=== PATIENT | female | born 1950 | race Caucasian/White ===

== ENCOUNTER 2023-08-18 10:23 | Outpatient (CLI) | payer SELFPAY ==
[2023-08-18 10:46] LABS: Eosinophils # 0.2 10^3/uL (0.0-0.8); Eosinophils % 3.9 %; Hematocrit 32.4 % (36-47); Lymphocytes # 1.3 10^3/uL (0.8-4.8); Lymphocytes % 33.2 %; Mean Corpuscular HGB Conc 30.6 g/dL (30-55); Mean Corpuscular Hemoglobin 26.8 pg (27-33); Mean Corpuscular Volume 87.8 fl (85-98); Mean Platelet Volume 10.3 fL (7.4-10.4); Monocytes # 0.3 10^3/uL (0.2-0.9); Monocytes % 7.1 %; Neutrophils # 2.08 10^3/uL (1.8-7.7); Neutrophils % 54.5 %; Nucleated Red Blood Cells % 0 %; Platelet Count 255 10^3/cmm (157-399); Red Blood Count 3.69 10^6/uL (3.85-5.65); Red Cell Distribution Width 14.7 % (12.1-15.1); White Blood Count 3.82 10^3/uL (3.29-11.43)
[2023-08-18 11:29] LABS: Alanine Aminotransferase < 5 U/L (0-33); Albumin Level 3.3 g/dL (3.5-5.2); Alkaline Phosphatase 84 U/L (35-105); Anion Gap 13.5 (5-19); Aspartate Amino Transferase 11 U/L (0-32); Blood Urea Nitrogen 12 mg/dL (8-23); Calcium 8.6 mg/dL (8.5-10.5); Carbon Dioxide 29 mmol/L (22-29); Chloride 109 mmol/L (98-107); Chol HDL Ratio 3.48 mg/dL (0.0-4.40); Cholesterol 160 mg/dL (0-200); Globulin 2.7 g/dL (1.3-4.6); Glomerular Filtration Rate 61.9 mL/min (90-130); Glucose 179 mg/dL (65-115); HDL Cholesterol 46 mg/dL (60-100); LDL Cholesterol Calculated 89 mg/dL (50-129); LDL HDL Ratio 1.93 RATIO (0.00-3.22); Osmolality Calculated 310 mOsm/kg (285-295); Potassium 3.5 mmol/L (3.5-5.1); Sodium 148 mmol/L (136-145); Thyroid Stimulating Hormone 1.45 uIU/mL (0.27-4.20); Total Bilirubin 0.2 mg/dL (0.15-1.2); Triglycerides 124 mg/dL (0-150); Vitamin B12 298 pg/mL (232-1245)
== END 2023-08-18 10:24 | disposition home or self-care (01) ==
PROVIDERS: PCP Family Medicine; Visit Provider Family Medicine
DX: I10 Essential (primary) hypertension (principal); D64.9 Anemia, unspecified
CPT/HCPCS: 80053; 80061; 82607; 83735; 84443; 85025

== ENCOUNTER 2023-10-31 12:06 | Outpatient (CLI) | payer MEDICARE, SELFPAY ==
--- NOTE | 2023-10-31 12:09 | CTR_ITS ---
PROCEDURE INFORMATION: Exam: CT Neck With Contrast Exam date and time: 10/31/2023 1:24 PM Age: 73 years old Clinical indication: Dysphagia / difficulty swallowing TECHNIQUE: Imaging protocol: Computed tomography of the neck with contrast. Radiation optimization: All CT scans at this facility use at least one of these dose optimization techniques: automated exposure control; mA and/or kV adjustment per patient size (includes targeted exams where dose is matched to clinical indication); or iterative reconstruction. Contrast material: OMNI 350; Contrast volume: 100 ml; Contrast route: INTRAVENOUS (IV); COMPARISON: No relevant prior studies available. RADIATION DOSE METRICS: Total DLP (mGy-cm): 146.18 FINDINGS: Salivary glands: Parotid and submandibular glands are normal. Oral cavity: Asymmetric heterogeneous density is present at the tongue base, right greater than left measuring 3.0 cm in the transverse dimension. Pharynx: Unremarkable. No significant tonsillar enlargement. Prevertebral and retropharyngeal spaces: Unremarkable. Larynx: Unremarkable. Epiglottis is normal. Thyroid: Normal. No enlarged or calcified nodules. Trachea: Visualized trachea is unremarkable. Lungs: Unremarkable as visualized. Lymph nodes: Unremarkable. No lymphadenopathy. Vasculature: Multi-vessel atherosclerotic disease. Calcified plaque in the proximal right internal carotid artery results in mild stenosis. Diminutive right cervical vertebral artery with thready flow. Patient is left vertebral artery dominant. Atherosclerotic plaque at the origin of the left common carotid artery results in a short segment of moderate to severe stenosis. Atherosclerotic plaque in the mid to distal left common carotid artery results in mild stenosis. There is occlusion of the left internal carotid artery by atherosclerotic plaque. Prominent atherosclerotic plaque is present in the aortic arch with ulceration. Bones/joints: Unremarkable. No acute fracture. Soft tissues: Unremarkable. No significant soft tissue swelling. CT/CT neck w con* [id number] IMPRESSION: 1. There is asymmetric heterogeneous density at the tongue base, right greater than the left. This region is amenable to direct inspection. 2. Multi-vessel atherosclerotic disease. There is complete occlusion of the left internal carotid artery by atherosclerotic plaque.
[2023-10-31 13:15] LABS: Blood Urea Nitrogen 16 mg/dL (8-23)
== END 2023-10-31 12:07 | disposition home or self-care (01) ==
LOC: RAD 12:07
PROVIDERS: PCP Family Medicine; Visit Provider Specialist
DX: R13.10 Dysphagia, unspecified (principal); K14.8 Other diseases of tongue; I65.23 Occlusion and stenosis of bilateral carotid arteries
CPT/HCPCS: 70491; 82565; 84520; Q9967

== ENCOUNTER 2023-12-05 11:28 | Outpatient (CLI) | payer OTHER, SELFPAY ==
--- NOTE | 2023-12-05 11:29 | MR_ITS ---
WS: [id number] MRI NECK WITH AND WITHOUT CONTRAST. COMPARISON: CT 10/31/2023 Multiplanar, multisequence imaging is performed with and without contrast. MultiHance 14 mL IV. Nearly symmetric appearance of the tongue base and parapharyngeal soft tissues. No enhancing mass is identified. No edema. The larynx and subglottic airway are normal. No tongue base abnormality is conf irmed. No cervical chain lymphadenopathy. Normal appearance of the parotid glands. Orbits and imaging at the skull base are negative. Mild RIGHT curvature cervical spine. Reversal of t he normal cervical spine at C5. RIGHT mastoid air cell effusion. MR/MR orbit face neck wo/w* [id number] IMPRESSION: 1. No mass or abnormal enhancement at the tongue base identified by MRI. 2. No cervical chain lymphadenopathy.
[2023-12-05] MEDS: gadobenate dimeglumine 20 mL vial IV (13:13)
== END 2023-12-05 11:29 | disposition home or self-care (01) ==
LOC: RAD 11:29
PROVIDERS: PCP Family Medicine; Visit Provider Specialist
DX: D37.05 Neoplasm of uncertain behavior of pharynx (principal)
CPT/HCPCS: 70543; A9577

== ENCOUNTER 2023-12-20 10:08 | Outpatient (CLI) | payer OTHER, SELFPAY ==
--- NOTE | 2023-12-20 10:19 | CT_ITS ---
WS: [id number] CT TEMPORAL BONES TECHNIQUE: Noncontrast CT of the temporal bones with coronal and sagittal reformatted images. CLINICAL INFORMATION: OTALGIA,R EAR COMPARISON: None. DLP: 382.[address] scans at [facility] use at least one of these dose optimization techniques: automated e xposure control; mA and/or kV adjustment per patient size (includes targeted exams where dose is matc hed to clinical indication); or iterative reconstruction. FINDINGS: Slight mucosal thickening RIGHT maxillary sinus. LEFT maxillary sinus is well aerated. Mild mucosal thickening in the ethmoid air cells. Normal posterior nasopharynx. RIGHT: RIGHT mastoid effusion. Normal external auditory canal. Ossicles are normal in appearance. Mucosal th ickening RIGHT epitympanum extending into Prussak space. Slight retraction RIGHT tympanic membrane. N ormal tegmen tympani. Semicircular canals and cochlea are normal in appearance. Normal inner ear stru ctures. Normal vestibular aqueduct. Facial nerve recess is normal. LEFT: Mastoid air cells are well aerated. Normal external auditory canal. Ossicles are normal in appearance . Middle ear is well aerated. Normal tegmen tympani. Semicircular canals and cochlea are normal in ap pearance. Prussak's space is normal. Normal inner ear structures. Normal vestibular aqueduct. Facial nerve recess is normal. Visualized intracranial contents and posterior fossa are normal. CT/CT temporal bone wo con* [id number] IMPRESSION: 1. RIGHT mastoid effusion. 2. Slight mucosal thickening in the RIGHT epitympanum extending into Prussak's space. Normal scutum. Normal ossicles. Slight retraction RIGHT tympanic membra ne. 3. LEFT mastoid air cells and middle ear well aerated. 4. Otherwise normal inner ear structures bilaterally. 5. Vascular calcification.
== END 2023-12-20 10:09 | disposition home or self-care (01) ==
LOC: RAD 10:09
PROVIDERS: PCP Family Medicine; Visit Provider Specialist
DX: H74.8X1 Other specified disorders of right middle ear and mastoid (principal); I67.2 Cerebral atherosclerosis; H92.01 Otalgia, right ear
CPT/HCPCS: 70480

== ENCOUNTER 2024-02-16 22:33 | Emergency (ER) | payer OTHER, SELFPAY ==
[2024-02-16 22:35] VITALS: BP 178/97; PULSE 68; RESP 16; TEMP 36.7; O2SAT 94; BMI 28.3
[2024-02-16 22:52] LABS: Basophils # 0.1 10^3/uL (0.0-0.1); Basophils % 0.8 %; Eosinophils # 0.3 10^3/uL (0.0-0.8); Eosinophils % 4.6 %; Hematocrit 39.3 % (36-47); Lymphocytes # 2.2 10^3/uL (0.8-4.8); Lymphocytes % 36.8 %; Mean Corpuscular HGB Conc 32.1 g/dL (30-55); Mean Corpuscular Hemoglobin 26.6 pg (27-33); Mean Corpuscular Volume 83.1 fl (85-98); Mean Platelet Volume 9.8 fL (7.4-10.4); Monocytes # 0.5 10^3/uL (0.2-0.9); Monocytes % 7.9 %; Neutrophils # 3.02 10^3/uL (1.8-7.7); Neutrophils % 49.7 %; Nucleated Red Blood Cells % 0 %; Platelet Count 274 10^3/cmm (157-399); Red Blood Count 4.73 10^6/uL (3.85-5.65); White Blood Count 6.08 10^3/uL (3.29-11.43)
[2024-02-16 23:04] LABS: Alanine Aminotransferase 12 U/L (0-33); Albumin Level 4.1 g/dL (3.5-5.2); Alkaline Phosphatase 126 U/L (35-105); Anion Gap 15.1 (5-19); Aspartate Amino Transferase 12 U/L (0-32); Blood Urea Nitrogen 21 mg/dL (8-23); Carbon Dioxide 26 mmol/L (22-29); Chloride 102 mmol/L (98-107); Creatinine Clr Calc Pharmacy 42.6008; Globulin 2.9 g/dL (1.3-4.6); Glucose 109 mg/dL (65-115); Lipase 45 U/L (13-60); Osmolality Calculated 292 mOsm/kg (285-295); Potassium 4.1 mmol/L (3.5-5.1); Sodium 139 mmol/L (136-145); Total Bilirubin 0.2 mg/dL (0.15-1.2)
--- NOTE | 2024-02-16 23:37 | CTR_ITS ---
PROCEDURE INFORMATION: Exam: CT Abdomen And Pelvis With Contrast Exam date and time: 02/17/2024 12:04 AM Age: 73 years old Clinical indication: Abdominal pain; Localized; Left; Additional info: Llq abd pain TECHNIQUE: Imaging protocol: Computed tomography of the abdomen and pelvis with contrast. Radiation optimization: All CT scans at this facility use at least one of these dose optimization techniques: automated exposure control; mA and/or kV adjustment per patient size (includes targeted exams where dose is matched to clinical indication); or iterative reconstruction. Contrast material: OMNI 350; Contrast volume: 100 ml; Contrast route: INTRAVENOUS (IV); COMPARISON: No relevant prior studies available. RADIATION DOSE METRICS: Total DLP (mGy-cm): 554.46 FINDINGS: Lungs: The lung bases are clear. Heart: Heart size is within normal limits. There is no pericardial effusion or pericardial thickening. Diaphragm: Small hiatal hernia. Liver: Right hepatic low-density lesion, too small to characterize though likely representing small cyst. The liver is otherwise normal. Gallbladder and biliary ducts: The gallbladder is normal. There is no ductal dilatation. Pancreas: The pancreas is normal. Spleen: The spleen is normal. Adrenal glands: The adrenal glands are normal. Kidneys and ureters: Severely atrophic right kidney. There are bilateral subcentimeter renal low-density lesions which are too small for accurate characterization, likely representing simple cysts. Minimal fullness of the left renal collecting system without hydronephrosis, likely physiologic. No ureteral dilatation. No renal calcifications. Stomach and bowel: Mild colonic diverticulosis without diverticulitis. Mild retained colonic stool. There is no large or small bowel obstruction. There is no evidence of bowel wall thickening. Appendix: A normal appendix is identified. Intraperitoneal space: No inflammatory changes are identified. There is no free fluid or fluid collection seen. There is no pneumoperitoneum. Vasculature: Atherosclerotic calcifications of the aorta are present. No aneurysm is identified. Lymph nodes: No enlarged lymph nodes are identified. Urinary bladder: The bladder is unremarkable. Reproductive: The uterus is absent. Bones/joints: No acute osseous abnormalities are seen. Chronic appearing superior endplate compression fracture T12. Soft tissues: Small periumbilical hernia containing only fat. CT/CT abdomen pelvis w con* [id number] IMPRESSION: 1. No acute intra-abdominal or pelvic process. 2. Other nonemergent findings above. COMMENTS: Consistent with the [place] [employer]'s Incidental Findings Committee white paper (J Am Pablo Radiol 2018): Any incidental renal lesion less than 1 cm or classified as too small to characterize, or any incidental cystic renal lesion characterized as simple-appearing, is likely benign. No follow-up imaging is recommended for these lesions per consensus recommendations based on imaging criteria.
--- NOTE | 2024-02-16 23:57 | ED_ITS ---
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 that is very hard to communicate with Related Data Previous Rx's Medication Instructions Recorded nicotine 7 mg/24 hr daily 1 patch transdermal Q24H #7 ea 08/18/23 transdermal patch diazepam 5 mg tablet 5 mg PO Q8H anxiety #90 tabs 12/29/23 hydrocodone 10 mg-acetaminophen 1 tab PO Q8H PRN pain 30 days #90 01/26/24 325 mg tablet tabs Allergies Allergy/AdvReac Type Severity Reaction Status Date / Time lactose Allergy Intermediate ADR-Gastrointestinal Verified 08/17/23 15:37 Upset MSG Allergy Intermediate ADR-Gastrointestinal Uncoded 08/17/23 15:37 Upset Review of Systems 2 General: Reports: 10 or more systems reviewed and unremarkable except in HPI and below Physical Exam 2 Const: COMMON NORMALS: no acute distress, average body habitus, healthy appearing, alert and well nourished HENMT: COMMON NORMALS: normocephalic, atraumatic, hearing grossly normal bilaterally, external ears normal, Normal external nose present and moist oral mucous membranes HEAD & SCALP: normocephalic and atraumatic NOSE: Normal external nose present EXTERNAL EAR: Yes external ears normal Neck/C-Spine: COMMON NORMALS: no JVD Chest: COMMONS NORMALS: normal inspection of the chest and normal palpation of entire chest wall Resp: COMMON NORMALS: normal respiratory effort, No retractions, No use of accessory muscles and clear to auscultation bilaterally AUSCULTATION: clear to auscultation bilaterally Cardio: COMMON NORMALS: no JVD, regular rate, regular rhythm, S1 normal heart sound present, S2 normal heart sound present, No gallops present (Cardio), No clicks present (Cardio), No murmurs present (Cardio) and No rub (Cardio) R ATE: regular rate RHYTHM: regular rhythm HEART SOUNDS: S1 normal heart sound present and S2 normal heart sound present GI: COMMON NORMALS: Normal to inspection, nondistended, normoactive bowel sounds present, Soft to palpation, No hepatosplenomegaly present and no masses; negative for non-tender (Mild tenderness to palpate left side of abdomen) P ALPATION: Yes Soft to palpation and Yes No hepatosplenomegaly present Neuro: SENSORIUM/ORIENTATION: Yes alert Course 2 Vital Signs: Vital signs: Vital Signs Temperature 98.0 F 02/16/24 22:35 Pulse Rate 50 L 02/17/24 01:38 Respiratory Rate 14 02/17/24 01:38 Blood Pressure 140/99 02/17/24 01:38 Pulse Oximetry 98 02/17/24 01:38 Oxygen Delivery Me thod Room Air 02/17/24 00:59 MDM - Abdominal Pain Medical Decision Making Patient had lab work included CBC CMP lipase urinalysis and contrasted CT scan of the abdomen pelvis all essentially unremarkable. Patient urged back home. Patient should follow-up with her PCP within next 7 to 10 days. Differential Diagnosis Likely abdominal pain Medical Records I reviewed the patient's medical records. Lab Data I reviewed the patient's lab results. 02/16/24 22:15 02/16/24 22:15 Labs/Radiology: Radiology Impressions Abdomen/Pelvis CT 02/16/24 23:37 IMPRESSION: 1. No acute intra-abdominal or pelvic process. 2. Other nonemergent findings above. COMMENTS: Consistent with the [employer]'s Incidental Findings Committee white paper (J Am Pablo Radiol 2018): Any incidental renal lesion less than 1 cm or classified as too small to characterize, or any incidental cystic renal lesion characterized as simple-appearing, is likely benign. No follow-up imaging is recommended for these lesions per consensus recommendations based on imaging criteria. Laboratory Results WBC 6.08 10^3/uL (3.29-11.43) 02/16/24 22:15 RBC 4.73 10^6/uL (3.85-5.65) 02/16/24 22:15 Hgb 12.60 g/dL (11.27-16.99) 02/16/24 22:15 Hct 39.3 % (36-47) 02/16/24 22:15 MCV 83.1 fl (85-98) L 02/16/24 22:15 MCH 26.6 pg (27-33) L 02/16/24 22:15 MCHC 32.1 g/dL (30-55) 02/16/24 22:15 RDW 16.0 % (12.1-15.1) H 02/16/24 22:15 Plt Count 274 10^3/cmm (157-399) 02/16/24 22:15 MPV 9.8 fL (7.4-10.4) 02/16/24 22:15 Neut % (Auto) 49.7 % 02/16/24 22:15 Lymph % (Auto) 36.8 % 02/16/24 22:15 Davison % (Auto) 7.9 % 02/16/24 22:15 Eos % (Auto) 4.6 % 02/16/24 22:15 Baso % (Auto) 0.8 % 02/16/24 22:15 Neut # (Auto) 3.02 10^3/uL (1.8-7.7) 02/16/24 22:15 Lymph # (Auto) 2.2 10^3/uL (0.8-4.8) 02/16/24 22:15 Davison # (Auto) 0.5 10^3/uL (0.2-0.9) 02/16/24 22:15 Eos # (Auto) 0.3 10^3/uL (0.0-0.8) 02/16/24 22:15 Baso # (Auto) 0.1 10^3/uL (0.0-0.1) 02/16/24 22:15 Nucleated RBC % (auto) 0 % 02/16/24 22:15 Nucleated RBCs # 0.0 /100WBC 02/16/24 22:15 Sodium 139 mmol/L (136-145) 02/16/24 22:15 Potassium 4.1 mmol/L (3.5-5.1) 02/16/24 22:15 Chloride 102 mmol/L (98-107) 02/16/24 22:15 Carbon Dioxide 26 mmol/L (22-29) 02/16/24 22:15 Anion Gap 15.1 (5-19) 02/16/24 22:15 BUN 21 mg/dL (8-23) 02/16/24 22:15 Creatinine 1.2 mg/dL (0.5-0.9) H 02/16/24 22:15 GFR Calculation Not Reportable 02/16/24 22:15 Glucose 109 mg/dL (65-115) 02/16/24 22:15 Calculated Osmolality 292 mOsm/kg (285-295) 02/16/24 22:15 Calcium 9.0 mg/dL (8.5-10.5) 02/16/24 22:15 Total Bilirubin 0.2 mg/dL (0.15-1.2) 02/16/24 22:15 AST 12 U/L (0-32) 02/16/24 22:15 ALT 12 U/L (0-33) 02/16/24 22:15 Alkaline Phosphatase 126 U/L (35-105) H 02/16/24 22:15 Total Protein 7.0 g/dL (6.6-8.7) 02/16/24 22:15 Albumin 4.1 g/dL (3.5-5.2) 02/16/24 22:15 Globulin 2.9 g/dL (1.3-4.6) 02/16/24 22:15 Lipase 45 U/L (13-60) 02/16/24 22:15 Urine Color Yellow (Yellow) 02/17/24 00:20 Urine Appearance Clear (CLEAR) 02/17/24 00:20 Urine pH 6.5 (5-7) 02/17/24 00:20 Ur Specific [place] 1.011 (1.005-1.030) 02/17/24 00:20 Urine Protein Negative (Negative) 02/17/24 00:20 Urine Glucose (UA) Negative (Normal) 02/17/24 00:20 Urine Ketones Negative (Negative) 02/17/24 00:20 Urine Blood Negative (Negative) 02/17/24 00:20 Urine Nitrate Negative (Negative) 02/17/24 00:20 Urine Bilirubin Negative (Negative) 02/17/24 00:20 Urine Urobilinogen 0.2 mg/dL (Negative) 02/17/24 00:20 Ur Leukocyte Esterase Negative (Negative) 02/17/24 00:20 Urine RBC 0-2 /hpf (0-2) 02/17/24 00:20 Urine WBC 0-5 /hpf (0-5) 02/17/24 00:20 Ur Squamous Epith Cells 0-5 /hpf (0-5) 02/17/24 00:20 Amorphous Sediment Not Reportable 02/17/24 00:20 Urine Bacteria None seen /hpf (NONE) 02/17/24 00:20 Hyaline Casts 0-4 /lpf H 02/17/24 00:20 All radiology interpretation(s) finalized by discharge Discharge Plan Discharge Patient Disposition: Home Clinical Impression: Abdominal pain Qualifiers: Abdominal location: left lower quadrant Qualified Code(s): R10.32 - Left lower quadrant pain Condition: Stable Prescriptions: No Action nicotine 7 mg/24 hr patch 24 hour 1 patch transdermal Q24H Qty: 7 11RF diazepam 5 mg tablet 5 mg PO Q8H Qty: 90 0RF hydrocodone-acetaminophen 10-325 mg tablet 1 tab PO Q8H PRN (Reason: pain) 30 Days Qty: 90 0RF Discharge Orders: Discharge ED (Routine); Ordered 02/17/24 Ordered By: Jamshid Dowd Referrals: Giuseppe Ramey DO [Primary Care Provider] - 1 week Patient Instructions: Abdominal Pain (ED) Activity Restrictions/Additional Instructions: Your exam in the ER that included lab work, urinalysis, and contrasted CT scan of the abdomen pelvis did not show any acute cause of your abdominal pain. Please follow-up with your family practice physician for further evaluation testing within next 7 to 10 days. Thank you for choosing [facility] for your healthcare needs today. Please realize that you were seen in the emergency department and that we are providing you with an emergency medical screening exam and this may not be a complete and all exclusive of all testing and/or medical workup we may need to determine your element or severity of your illness. It is very important that you follow-up as instructed with your primary care provider or specialist for the additional evaluation and to discuss your medical treatment plan. You may return to the emergency department should you have concerns or if your condition changes or worsens in any way. Coding Level of Care Code ED Fence Installer for Trinidad Ramachandran
[2024-02-17] VITALS (8 sets, daily range): BP systolic 140–162; BP diastolic 63–99; PULSE 50–71; RESP 14–20; O2SAT 90–98
[2024-02-17] MEDS: iohexol 350 mg/mL 500 mL Btl (per mL) IV (00:08)
[2024-02-17] MEDS: morphine 4 mg/mL SDV 1 mL IVP (00:21)
[2024-02-17] MEDS: ondansetron 2 mg/ML SDV 2 mL 4 MG IVP (00:21)
[2024-02-17 00:36] LABS: Bilirubin Urine Negative (Negative); Blood Urine Negative (Negative); Glucose Urine UA Negative (Normal); Ketones Urine Negative (Negative); Leukocyte Esterase Urine Negative (Negative); Nitrate Urine Negative (Negative); Protein Urine Negative (Negative); Specific Gravity, Urine 1.011 (1.005-1.030); Urine Appearance Clear (CLEAR); Urine Color Yellow (Yellow); Urobilinogen Urine 0.2 mg/dL (Negative); pH Urine 6.5 (5-7)
[2024-02-17 00:41] LABS: Add Urine Microscopic? YES; Bacteria Urine None Seen /hpf; Hyaline Casts Urine 0-4 /lpf; RBC Urine 0-2 /hpf (0-2); Squamous Epithelial Cell Urine 0-5 /hpf (0-5); WBC Urine 0-5 /hpf (0-5)
== END 2024-02-17 08:51 | disposition home or self-care (01) ==
PROVIDERS: Emergency Provider Emergency Medicine; PCP Family Medicine
DX: R10.32 Left lower quadrant pain (principal)
CPT/HCPCS: 74177; 80053; 81001; 83690; 85025; 96374; 96375; 99285; J2270; J2405

== ENCOUNTER 2024-05-22 15:56 | Outpatient (CLI) | payer OTHER, SELFPAY ==
[2024-05-22 16:12] LABS: Bilirubin Urine Negative (Negative); Blood Urine Negative (Negative); Glucose Urine UA Negative (Normal); Ketones Urine Negative (Negative); Leukocyte Esterase Urine Trace (Negative); Nitrate Urine Negative (Negative); Protein Urine Negative (Negative); Specific Gravity, Urine 1.006 (1.005-1.030); Urine Appearance Clear (CLEAR); Urine Color Yellow (Yellow); Urobilinogen Urine 0.2 mg/dL (Negative)
[2024-05-22 16:20] LABS: Add Urine Microscopic? YES; Bacteria Urine None Seen /hpf; Hyaline Casts Urine 0.81 /lpf; RBC Urine 0-2 /hpf (0-2); Squamous Epithelial Cell Urine 0-5 /hpf (0-5); WBC Urine 0-5 /hpf (0-5)
== END 2024-05-22 15:57 | disposition home or self-care (01) ==
LOC: LAB 16:00
PROVIDERS: PCP Family Medicine; Visit Provider Family Medicine
DX: N39.0 Urinary tract infection, site not specified (principal)
CPT/HCPCS: 81001; 87086

== ENCOUNTER 2024-09-30 12:24 | Emergency (ER) | payer OTHER, SELFPAY ==
[2024-09-30 12:26] VITALS: BP 117/67; PULSE 75; TEMP 36.7; O2SAT 94
--- NOTE | 2024-09-30 12:36 | ECG_ITS ---
[employer] Test Date: 2024-09-30 Pat Name: Debbie Brown Department: Room: Gender: Female Flotation Tender: : 1950 Requested By: Matthew Oreilly Order Number: [id number] Beto MD: EPHRAIM MACIAS Measurements Intervals [place] Rate: 69 P: 72 NC: 192 QRS: 71 QRSD: 93 T: 71 QT: 421 QTc: 452 Interpretive Statements SINUS RHYTHM POSSIBLE RIGHT VENTRICULAR CONDUCTION DELAY [RSR (QR) IN V1/V2] NONSPECIFIC T-WAVE ABNORMALITY No previous ECG available for comparison Electronically Signed On 10-01-2024 19:04:54 CDT by EPHRAIM MACIAS [email or web address]
--- NOTE | 2024-09-30 12:46 | PC.PHAR ---
Pt is from [facility]
--- NOTE | 2024-09-30 12:47 | CTR_ITS ---
PROCEDURE INFORMATION: Exam: CT Abdomen And Pelvis With Contrast Exam date and time: 09/30/2024 2:19 PM Age: 74 years old Clinical indication: Abdominal pain; Localized; Left lower quadrant (llq); Additional info: Gi bleed, llq pain TECHNIQUE: Imaging protocol: Computed tomography of the abdomen and pelvis with contrast. Radiation optimization: All CT scans at this facility use at least one of these dose optimization techniques: automated exposure control; mA and/or kV adjustment per patient size (includes targeted exams where dose is matched to clinical indication); or iterative reconstruction. Contrast material: OMNIPAQUE 350; Contrast volume: 100 ml; Contrast route: INTRAVENOUS (IV); COMPARISON: CT abdomen pelvis w con* [id number] 02/17/2024 12:04 AM RADIATION DOSE METRICS: Total DLP (mGy-cm): 840.43 FINDINGS: Liver: Normal. No mass. Gallbladder and biliary ducts: Normal. No calcified stones. No ductal dilation. Pancreas: Normal. No ductal dilation. Spleen: Normal. No splenomegaly. Adrenal glands: Normal. No mass. Kidneys and ureters: There is a atrophy of the right kidney. Stomach and bowel: There is bowel wall thickening involving the distal transverse colon and descending colon. Sigmoid colon diverticulosis. No small bowel loop dilatation. Appendix: Normal appendix Intraperitoneal space: Unremarkable. No free air. No significant fluid collection. Vasculature: Mild calcified atherosclerotic changes are seen throughout the abdominal aorta. Lymph nodes: Unremarkable. No enlarged lymph nodes. Urinary bladder: Unremarkable as visualized. Reproductive: Post hysterectomy changes are seen. Bones/joints: Mild lumbar spine degenerative changes. Soft tissues: Unremarkable. CT/CT abdomen pelvis w con* [id number] IMPRESSION: 1. There is bowel wall thickening involving the distal transverse colon and descending colon. Findings suggest colitis involving the distal transverse and descending colon. 2. Mild calcified atherosclerotic changes are seen throughout the abdominal aorta. 3. Sigmoid colon diverticulosis. 4. Mild lumbar spine degenerative changes.
[2024-09-30 12:56] VITALS: RESP 17; O2SAT 94
[2024-09-30] MEDS: morphine 4 mg/mL SDV 1 mL 2 MG IVP (12:56)
[2024-09-30] MEDS: ondansetron 2 mg/ML SDV 2 mL 4 MG IVP (12:56)
[2024-09-30 13:00] LABS: Basophils % 0.1 %; Eosinophils % 0.1 %; Hematocrit 39.2 % (36-47); Lymphocytes # 1.6 10^3/uL (0.8-4.8); Lymphocytes % 11.5 %; Mean Corpuscular HGB Conc 32.1 g/dL (30-55); Mean Corpuscular Hemoglobin 26.8 pg (27-33); Mean Corpuscular Volume 83.4 fl (85-98); Monocytes # 0.6 10^3/uL (0.2-0.9); Monocytes % 4.5 %; Neutrophils # 11.51 10^3/uL (1.8-7.7); Neutrophils % 83.4 %; Nucleated Red Blood Cells % 0 %; Platelet Count 209 10^3/cmm (157-399); Red Cell Distribution Width 15.3 % (12.1-15.1); White Blood Count 13.79 10^3/uL (3.29-11.43)
[2024-09-30 13:49] VITALS: BP 177/77; PULSE 60; RESP 20; O2SAT 92
--- NOTE | 2024-09-30 13:50 | PC.NURSE ---
Pt placed on oxygen @ 2lnc post Morphine admin. Sats had dropped to 86% with good waveform.
[2024-09-30 14:00] LABS: INR 0.99 (0.8-1.2); Partial Thromboplastin Time 29.6 SECONDS (23.9-36.7)
[2024-09-30 14:04] LABS: Alanine Aminotransferase 8 U/L (0-33); Albumin Level 3.5 g/dL (3.5-5.2); Alkaline Phosphatase 105 U/L (35-105); Anion Gap 14.3 (5-19); Aspartate Amino Transferase 12 U/L (0-32); Blood Urea Nitrogen 16 mg/dL (8-23); Calcium 8.5 mg/dL (8.5-10.5); Carbon Dioxide 26 mmol/L (22-29); Chloride 98 mmol/L (98-107); Creatinine Clr Calc Pharmacy 47.1242; Globulin 2.7 g/dL (1.3-4.6); Glucose 134 mg/dL (65-115); Osmolality Calculated 283 mOsm/kg (285-295); Potassium 3.3 mmol/L (3.5-5.1); Sodium 135 mmol/L (136-145); Total Bilirubin 0.4 mg/dL (0.15-1.2); Total Protein 6.2 g/dL (6.6-8.7)
[2024-09-30] MEDS: iohexol 350 mg/mL 500 mL Btl (per mL) IV (14:20)
[2024-09-30 14:51] VITALS: BP 183/74; PULSE 66; RESP 22; O2SAT 93
[2024-09-30 15:00] VITALS: BP 146/66; PULSE 74; RESP 22; O2SAT 95
[2024-09-30 15:23] LABS: Bilirubin Urine Negative (Negative); Blood Urine 2+ (Negative); Glucose Urine UA Negative (Normal); Ketones Urine Negative (Negative); Leukocyte Esterase Urine Negative (Negative); Nitrate Urine Positive (Negative); Protein Urine Trace (Negative); Urine Appearance Clear (CLEAR); Urine Color Yellow (Yellow); pH Urine 6.5 (5-7)
[2024-09-30 15:28] LABS: Add Urine Microscopic? YES; Bacteria Urine 4+ /hpf; Hyaline Casts Urine 1.21 /lpf; RBC Urine 0-2 /hpf (0-2); Squamous Epithelial Cell Urine 0-5 /hpf (0-5); WBC Urine 0-5 /hpf (0-5)
[2024-09-30 15:30] LABS: Add Urine Culture? Yes; Specific Gravity, Urine 1.048 (1.005-1.030)
--- NOTE | 2024-09-30 15:42 | W.ED.GIBLEED ---
HPI - GI Bleed General: Chief complaint: GI Bleed Stated complaint: rectal bleeding, weakness Time Seen by Provider: 09/30/24 12:24 History of Present Illness: 74-year-old female presents accompanied by her daughter (who is a nurse) with chief complaint of rectal bleeding since last night. Patient was given MiraLAX yesterday for complaints of abdominal pain and constipation. Subsequently developed significant GI bleeding with multiple bloody bowel movements. Staff at her assisted living facility reported having to assist her from bathroom, with blood noted in trash can, on floor, and in bathroom. This morning, blood was also found in her bed. Daughter reports blood was mixed in color, neither bright red nor dark/black. Patient has history of GI bleeding in May 2022 concurrent with stroke, was hospitalized in [place], [place] and treated with Protonix, which she continues daily. Required 2-3 units of blood during that admission. Recent medical history includes eye injection for macular degeneration on Tuesday with no complications. Patient has some difficulty with word-finding due to previous stroke but is otherwise able to communicate needs. Related Data Home Medications ?Medication ?Instructions ?Recorded ?Confirmed acetaminophen 325 mg tablet 650 mg PO Q6H PRN pain/fever 09/30/24 09/30/24 amlodipine 10 mg tablet 10 mg PO DAILY 09/30/24 09/30/24 aspirin 325 mg tablet 325 mg PO DAILY 09/30/24 09/30/24 atorvastatin 40 mg tablet 40 mg PO BEDTIME 09/30/24 09/30/24 bupropion HCl 150 mg 24 hr tablet, 150 mg PO QAM 09/30/24 09/30/24 extended release carvedilol 25 mg tablet 25 mg PO BID 09/30/24 09/30/24 diazepam 5 mg tablet 5 mg PO Q8H PRN anxiety 09/30/24 09/30/24 magnesium hydroxide 400 mg/5 mL 1,305 ml PO DAILY PRN Constipation 09/30/24 09/30/24 oral suspension (Milk of Magnesia) olmesartan 40 mg tablet 40 mg PO DAILY 09/30/24 09/30/24 pantoprazole 40 mg tablet,delayed 40 mg PO QAM 09/30/24 09/30/24 release polyethylene glycol 3350 17 17 g PO DAILY PRN Constipation 09/30/24 09/30/24 gram/dose oral powder (Miralax) Previous Rx's ?Medication ?Instructions ?Recorded hydrocodone 10 mg-acetaminophen 1 tab PO Q8H PRN pain 30 days #90 01/26/24 325 mg tablet tabs ciprofloxacin HCl 500 mg tablet 500 mg PO BID #20 tabs 09/30/24 metronidazole 500 mg tablet 500 mg PO Q12H 10 days #20 tabs 09/30/24 Allergies Allergy/AdvReac Type Severity Reaction Status Date / Time lactose Allergy Intermediate ADR-Gastrointestinal Verified 09/30/24 12:31 Upset MSG Allergy Intermediate ADR-Gastrointestinal Uncoded 09/30/24 12:31 Upset [facility] ED PFSH: Social History Smoking and tobacco/nicotine status: former use of tobacco/nicotine Physical Exam Const: COMMON NORMALS: no acute distress, average body habitus, alert and well nourished GENERAL APPEARANCE: cooperative ORIENTATION/CONSCIOUSNESS: Yes awake HENMT: COMMON NORMALS: normocephalic and atraumatic HEAD & SCALP: normocephalic and atraumatic Eye: COMMON NORMALS: conjunctivae normal CONJUNCTIVA: Yes conjunctivae normal Neck/C-Spine: GENERAL: Yes normal visual inspection Resp: COMMON NORMALS: normal respiratory effort, No retractions and No use of accessory muscles Cardio: COMMON NORMALS: regular rhythm and Peripheral pulses 2+ throughout RHYTHM: regular rhythm PERIPHERAL PULSES: Peripheral pulses 2+ throughout GI: COMMON NORMALS: Soft to palpation PALPATION: Yes Soft to palpation OTHER: Patient has focal left lower quadrant abdominal tenderness without guarding or rebound Extremity: COMMON NORMALS: full ROM and no pedal edema Neuro: SENSORIUM/ORIENTATION: Yes alert OTHER: Patient has severe expressive aphasia Skin: COMMON NORMALS: no rashes or lesions noted GENERAL SKIN EXAM: no rashes or lesions noted Course Vital Signs: Vital signs: Vital Signs Temperature 98.0 F 09/30/24 12:26 Pulse Rate 74 09/30/24 15:00 Respiratory Rate 22 H 09/30/24 15:00 Blood Pressure 146/66 09/30/24 15:00 Pulse Oximetry 95 09/30/24 15:00 Oxygen Delivery Me thod Room Air 09/30/24 15:00 Oxygen Flow Rate 1 09/30/24 14:51 MDM - GI Bleed Medical Decision Making ROS: Constitutional: Denies fever GI: Positive for rectal bleeding, Denies nausea/vomiting Neuro: Baseline speech difficulties from prior stroke All other systems reviewed and negative MEDICATIONS AND ALLERGIES: Medications: - Protonix daily - Hydrocodone 2-3 times daily for pain - Complete medication list pending from facility Allergies: None reported PAST HISTORICAL DATA: PMH: - Ischemic stroke (May 2022) with residual speech deficits - GI bleeding/ulcer (May 2022) - Diverticulitis - Macular degeneration requiring eye injections every 6 weeks PSH: No reported surgical history Social History: Previously independent, now resides in assisted living facility VITAL SIGNS: BP: 117/67 HR: 75 Temp: 98.0?F O2: 94% on room air PHYSICAL EXAM: General: Alert, non-toxic appearing, in no apparent distress HEENT: Head normocephalic and atraumatic. Mucous membranes moist Neck: Supple Respiratory: No increased work of breathing, No wheezing Cardiac: Regular rate and rhythm, 2+ pulses in all extremities Abdomen: Soft, non-distended, no rebound or guarding Rectal: Bright red blood noted on examination Neuro: Baseline word-finding difficulty, otherwise cranial nerves grossly intact, no focal motor or sensory deficits noted INITIAL IMPRESSION AND PLAN: Given the history and presentation, the primary working diagnosis is lower GI bleeding, likely diverticular bleed vs colitis. Additional considerations include upper GI source, medication-induced bleeding, and other colonic pathology. Plan: 1. Labs: CBC, CMP, PT/INR, PTT, Type & Screen, Urinalysis, Occult blood 2. IV access and fluid resuscitation as needed 3. CT abdomen/pelvis to evaluate for source of bleeding 4. Pain control as needed TEST INTERPRETATIONS: Labs: - Hemoglobin: 12.9 (stable) - Potassium: 3.3 (slightly low) - Other labs within normal limits CT Abdomen/Pelvis: - Colitis noted in transverse and descending colon - No other acute findings PROCEDURES: Digital rectal examination performed revealing bright red blood CONSIDERED BUT NOT PERFORMED: Admission considered but not pursued due to stable vital signs, normal hemoglobin, and identified source of bleeding with appropriate outpatient treatment plan FINAL IMPRESSION: Based on all the above, my clinical impression is most compatible with colitis with associated lower GI bleeding. The clinical picture is not currently suggestive of active diverticular hemorrhage, upper GI bleed, or other acute surgical abdomen. Although other conditions were also considered, they were deemed unlikely based on the clinical information available. CLINICAL DISPOSITION: The patient's current condition is stable in my estimation and the most appropriate and indicated disposition at this time is discharge home to assisted living with oral antibiotics and close monitoring. Rationale for Discharge: Patient is appropriate for discharge given stable vital signs, normal hemoglobin, non-toxic appearance, identified source of bleeding amenable to outpatient treatment, and presence of adequate support system at assisted living facility with nursing supervision. Patient's daughter is a nurse and can assist with monitoring. Clear return precautions discussed and daughter and patient desire discharge home. RISK STRATIFICATION AND CLINICAL DECISION RULES APPLIED: [place] Bleeding Score applied - Low risk for requiring intervention based on stable hemoglobin, normal vital signs, and no high-risk comorbidities CASE SUMMARY: 74-year-old female with history of prior GI bleeding and stroke presented with acute onset of rectal bleeding after receiving MiraLAX for constipation. Initial evaluation revealed stable vital signs and normal hemoglobin. CT imaging showed colitis. Patient was treated with IV fluids, oral antibiotics (Ciprofloxacin and Flagyl), and potassium supplementation. Given stable clinical status and identified source of bleeding, patient was discharged home with oral antibiotics and clear follow-up plan. Lab Data 09/30/24 12:42 09/30/24 13:39 Radiology Impressions Abdomen/Pelvis CT 09/30/24 12:47 IMPRESSION: 1. There is bowel wall thickening involving the distal transverse colon and descending colon. Findings suggest colitis involving the distal transverse and descending colon. 2. Mild calcified atherosclerotic changes are seen throughout the abdominal aorta. 3. Sigmoid colon diverticulosis. 4. Mild lumbar spine degenerative changes. Laboratory Results WBC 13.79 10^3/uL (3.29-11.43) H 09/30/24 12:42 RBC 4.70 10^6/uL (3.85-5.65) 09/30/24 12:42 Hgb 12.60 g/dL (11.27-16.99) 09/30/24 12:42 Hct 39.2 % (36-47) 09/30/24 12:42 MCV 83.4 fl (85-98) L 09/30/24 12:42 MCH 26.8 pg (27-33) L 09/30/24 12:42 MCHC 32.1 g/dL (30-55) 09/30/24 12:42 RDW 15.3 % (12.1-15.1) H 09/30/24 12:42 Plt Count 209 10^3/cmm (157-399) 09/30/24 12:42 MPV 10.0 fL (7.4-10.4) 09/30/24 12:42 Neut % (Auto) 83.4 % 09/30/24 12:42 Lymph % (Auto) 11.5 % 09/30/24 12:42 [place] % (Auto) 4.5 % 09/30/24 12:42 Eos % (Auto) 0.1 % 09/30/24 12:42 Baso % (Auto) 0.1 % 09/30/24 12:42 Neut # (Auto) 11.51 10^3/uL (1.8-7.7) H 09/30/24 12:42 Lymph # (Auto) 1.6 10^3/uL (0.8-4.8) 09/30/24 12:42 [place] # (Auto) 0.6 10^3/uL (0.2-0.9) 09/30/24 12:42 Eos # (Auto) 0.0 10^3/uL (0.0-0.8) 09/30/24 12:42 Baso # (Auto) 0.0 10^3/uL (0.0-0.1) 09/30/24 12:42 Nucleated RBC % (auto) 0 % 09/30/24 12:42 Nucleated RBCs # 0.0 /100WBC 09/30/24 12:42 PT 13.70 SECONDS (12.1-14.9) 09/30/24 13:39 INR 0.99 (0.8-1.2) 09/30/24 13:39 APTT 29.6 SECONDS (23.9-36.7) 09/30/24 13:39 Sodium 135 mmol/L (136-145) L 09/30/24 13:39 Potassium 3.3 mmol/L (3.5-5.1) L 09/30/24 13:39 Chloride 98 mmol/L (98-107) 09/30/24 13:39 Carbon Dioxide 26 mmol/L (22-29) 09/30/24 13:39 Anion Gap 14.3 (5-19) 09/30/24 13:39 BUN 16 mg/dL (8-23) 09/30/24 13:39 Creatinine 1.1 mg/dL (0.5-0.9) H 09/30/24 13:39 GFR Calculation Not Reportable 09/30/24 13:39 Glucose 134 mg/dL (65-115) H 09/30/24 13:39 Calculated Osmolality 283 mOsm/kg (285-295) L 09/30/24 13:39 Calcium 8.5 mg/dL (8.5-10.5) 09/30/24 13:39 Total Bilirubin 0.4 mg/dL (0.15-1.2) 09/30/24 13:39 AST 12 U/L (0-32) 09/30/24 13:39 ALT 8 U/L (0-33) 09/30/24 13:39 Alkaline Phosphatase 105 U/L (35-105) 09/30/24 13:39 Total Protein 6.2 g/dL (6.6-8.7) L 09/30/24 13:39 Albumin 3.5 g/dL (3.5-5.2) 09/30/24 13:39 Globulin 2.7 g/dL (1.3-4.6) 09/30/24 13:39 Urine Color Yellow (Yellow) 09/30/24 14:42 Urine Appearance Clear (CLEAR) 09/30/24 14:42 Urine pH 6.5 (5-7) 09/30/24 14:42 Ur Specific [place] 1.048 (1.005-1.030) H 09/30/24 14:42 Urine Protein Trace (Negative) A 09/30/24 14:42 Urine Glucose (UA) Negative (Normal) 09/30/24 14:42 Urine Ketones Negative (Negative) 09/30/24 14:42 Urine Blood 2+ (Negative) A 09/30/24 14:42 Urine Nitrate Positive (Negative) A 09/30/24 14:42 Urine Bilirubin Negative (Negative) 09/30/24 14:42 Urine Urobilinogen 1.0 mg/dL (Negative) 09/30/24 14:42 Ur Leukocyte Esterase Negative (Negative) 09/30/24 14:42 Urine RBC 0-2 /hpf (0-2) 09/30/24 14:42 Urine WBC 0-5 /hpf (0-5) 09/30/24 14:42 Ur Squamous Epith Cells 0-5 /hpf (0-5) 09/30/24 14:42 Amorphous Sediment Not Reportable 09/30/24 14:42 Urine Bacteria 4+ /hpf (NONE) H 09/30/24 14:42 Hyaline Casts 1.21 /lpf 09/30/24 14:42 Blood Type A Positive 09/30/24 12:52 Rho(D) Type Rh positive 09/30/24 12:52 Antibody Screen Negative 09/30/24 12:52 All radiology interpretation(s) finalized by discharge Discharge Plan Discharge Patient Disposition: Home Clinical Impression: Colitis, Lower gastrointestinal hemorrhage Condition: Stable Prescriptions: New ciprofloxacin HCl 500 mg tablet 500 mg PO BID Qty: 20 0RF metronidazole 500 mg tablet 500 mg PO Q12H 10 Days Qty: 20 0RF No Action hydrocodone-acetaminophen 10-325 mg tablet 1 tab PO Q8H PRN (Reason: pain) 30 Days Qty: 90 0RF atorvastatin 40 mg Tablet 40 mg PO BEDTIME carvedilol 25 mg Tablet 25 mg PO BID Rx Instructions: must administer with a meal/food acetaminophen 325 mg Tablet 650 mg PO Q6H PRN (Reason: pain/fever) aspirin 325 mg Tablet 325 mg PO DAILY magnesium hydroxide [Milk of Magnesia] 400 mg/5 mL Suspension 1,305 ml PO DAILY PRN (Reason: Constipation) amlodipine 10 mg Tablet 10 mg PO DAILY pantoprazole 40 mg Tablet,Delayed Release (Dr/Ec) 40 mg PO QAM polyethylene glycol 3350 [Miralax] 17 gram/dose Powder 17 g PO DAILY PRN (Reason: Constipation) olmesartan 40 mg Tablet 40 mg PO DAILY bupropion HCl 150 mg Tablet Extended Release 24 Hr 150 mg PO QAM diazepam 5 mg tablet 5 mg PO Q8H PRN (Reason: anxiety) Discharge Orders: Discharge ED (Routine); Ordered 09/30/24 Ordered By: Matthew Oreilly Referrals: Giuseppe Ramey DO [Primary Care Provider, Family Practice] Patient Instructions: Colitis (ED), Opioid Safety, Pain Management Activity Restrictions/Additional Instructions: DISCHARGE INSTRUCTIONS: 1. Take prescribed antibiotics (Ciprofloxacin and Flagyl) as directed. Complete entire course. 2. Hold MiraLAX and other laxatives until cleared by primary care physician. 3. Continue current medications including Protonix. 4. Monitor for increased bleeding, severe abdominal pain, dizziness, or weakness. 5. Return to ER immediately if symptoms worsen, large amounts of bleeding occur, or develop fever, severe abdominal pain, dizziness, or weakness. 6. Follow up with primary care physician within 2-3 days. Print Language: Korean Coding Level of Care Code ED Image Assembler for Trinidad Ramachandran
[2024-09-30] MEDS: potassium chloride ER 20 mEq Tablet 40 MEQ PO (16:07)
[2024-09-30] MEDS: ciprofloxacin 500 mg Tablet PO (16:07)
[2024-09-30] MEDS: metroNIDAZOLE 500 MG Tablet PO (16:07)
[2024-09-30 16:31] VITALS: BP 155/59; PULSE 59; O2SAT 93
== END 2024-09-30 16:34 | disposition home or self-care (01) ==
PROVIDERS: Emergency Provider Student in an Organized Health Care Education/Training Program; PCP Family Medicine
DX: K52.9 Noninfective gastroenteritis and colitis, unspecified (principal); I69.328 Other speech and language deficits following cerebral infarction; Z79.899 Other long term (current) drug therapy; Z79.82 Long term (current) use of aspirin
CPT/HCPCS: 36415; 74177; 80053; 81001; 85025; 85610; 85730; 86850; 86900; 87077; 87086; 87186; 93005; 96374; 96375; 99285; J2270; J2405; J9999

== ENCOUNTER 2024-12-24 10:36 | Outpatient (CLI) | payer OTHER, SELFPAY ==
[2024-12-24 11:09] LABS: Hematocrit 37.3 % (36-47); Hemoglobin 11.80 g/dL (11.27-16.99); Mean Corpuscular HGB Conc 31.6 g/dL (30-55); Mean Corpuscular Hemoglobin 27.4 pg (27-33); Mean Corpuscular Volume 86.7 fl (85-98); Nucleated Red Blood Cells % 0 %; Platelet Count 233 10^3/cmm (157-399); Red Blood Count 4.30 10^6/uL (3.85-5.65); White Blood Count 5.13 10^3/uL (3.29-11.43)
[2024-12-24 11:33] LABS: Alanine Aminotransferase 7 U/L (0-33); Albumin Level 3.8 g/dL (3.5-5.2); Alkaline Phosphatase 126 U/L (35-105); Anion Gap 12.6 (5-19); Aspartate Amino Transferase 10 U/L (0-32); Blood Urea Nitrogen 13 mg/dL (8-23); Calcium 8.5 mg/dL (8.5-10.5); Carbon Dioxide 28 mmol/L (22-29); Chloride 105 mmol/L (98-107); Cholesterol 148 mg/dL (0-200); Globulin 2.1 g/dL (1.3-4.6); Glucose 205 mg/dL (65-115); HDL Cholesterol 56 mg/dL (60-100); Osmolality Calculated 300 mOsm/kg (285-295); Potassium 3.6 mmol/L (3.5-5.1); Sodium 142 mmol/L (136-145); Total Protein 5.9 g/dL (6.6-8.7); Triglycerides 99 mg/dL (0-150)
== END 2024-12-24 10:37 | disposition home or self-care (01) ==
PROVIDERS: PCP Family Medicine; Visit Provider Family Medicine
DX: I10 Essential (primary) hypertension (principal)
CPT/HCPCS: 80053; 80061; 85025

== ENCOUNTER 2025-02-25 11:07 | Outpatient (CLI) | payer OTHER, SELFPAY ==
[2025-02-25 11:15] LABS: Add Urine Microscopic? NO
[2025-02-25 11:29] LABS: Glucose Urine UA Negative (Normal); Nitrate Urine Negative (Negative); Specific Gravity, Urine 1.014 (1.005-1.030)
[2025-02-25 11:34] LABS: Charge for UA Resulting for Rev
== END 2025-02-25 11:08 | disposition home or self-care (01) ==
PROVIDERS: PCP Family Medicine; Visit Provider Family Medicine
DX: N39.0 Urinary tract infection, site not specified (principal)
CPT/HCPCS: 81003; 87086

== ENCOUNTER 2025-03-10 23:01 | Emergency (ER) | payer OTHER, MEDICARE, SELFPAY ==
[2025-03-10 23:01] VITALS: BP 166/77; PULSE 76; RESP 18; TEMP 36.4; O2SAT 95; BMI 29.3
--- OUTSIDE RECORDS SUMMARY | 2025-03-10 23:07 | XMS_ITS | Data Portability ---
Author Organization [facility] Amparo Curran [facility] Address [address] [address] Care Team Providers Care Librarian Assistant Name Role Phone SANTOS JACKSON Primary Care Provider Assessment Encounter Date Assessment Date Assessment LastModified by Organization Details LastModified Time 04/27/2024 04/27/2024 Exam was normal today. No significant swelling noted of the right leg. We will monitor at this time. [email or web address] Not available 04/30/2024 07:58:06 06/01/2024 06/01/2024 Significant issues with communication today. The patient got obviously frustrated at times throughout the interview due to her lack of ability to communicate. The patient also was discussing other issues and things that did not relate to the patient's health. Unsure of the skin lesions that is not present today. The patient does have dry skin with overlying excoriation. Encouraged daily moisturizer. [email or web address] Not available 06/04/2024 15:14:53 12/21/2024 12/21/2024 Proceed with routine lab work. Continue current medications with no changes. The patient's chronic medical issues appear to be stable and well-controlled. [email or web address] Not available 12/27/2024 12:15:36 03/01/2025 03/01/2025 74-year-old female with history of abdominal bloating presenting with concerns of continued bloating. The patient describes slight symptom improvement but ongoing bathroom difficulties. Resolution remains incomplete, and management approaches continue to concern the patient. [email or web address] Not available 03/04/2025 11:11:41 Plan of Treatment Reminders Order Date Submit Date Provider Last Modified By Organization Details Last Modified Time Details Appointments None recorded. Lab None recorded. Referral ophthalmolo gist referral 2024 025 [email or web address] 2 Stefan Robbins MD, [address] [place], [address], 13:29:49 Procedures None recorded. Surgeries None recorded. Imaging None recorded. Medication Orders Wellbutrin XL 150 mg 24 hr tablet, extended release 2023 025 [facility], [address], [address], [place], [address], 18:59:46 Patient TargetsNo targets recorded. Patient Instructions Encounter Date Encounter Id Patient Instructions Last Modified By Organization Details Last Modified Time 03/01/2025 [id number] - Keep track of your abdominal bloating and note any changes. - Talk to your specialist about any problems with your current treatment plan. - Let us know if your symptoms do not get better or if they worsen. [email or web address] Not available 03/03/2025 09:12:24 During the discussion, we reviewed the patient's ongoing concerns about abdominal bloating. I explained the importance of monitoring her symptoms and communicating with her specialist about her dissatisfaction with the current management. We discussed the possibility of further evaluation should the bloating not continue to improve or worsen. The patient s understanding and acceptance of the current management plan were emphasized to ensure cooperative care moving forward. [email or web address] Not available 03/03/2025 09:12:24 Reason for Referral Survey Associate Referral for Visual disturbance Referring Physician: Santos Jackson, Family Medicine, Encounter Date: 06/01/2024 Results Created Date Observation Date Name Description Value Unit Range Abnormal Flag Note LastModifiedBy Organization Detail LastModifiedTime 12/25/1912/24/2024 XR, shoul amrajit, 2 or more view No observ ation record ed. dcrase [facility] [address], [address], 12/25/2024 14:07:25 Result Notes None recorded. Problems Name Problem SNOMED Code Status Onset Date Resolution Date Notes Provider Name and Address Organization Details Recorded Time Malignant neoplastic disease 540635941 Active 2023 DEBI zepeda [facility] 4 12:54:13 Expressive language disorder 770986192 Active 2023 DEBI MAJANOErick zepeda, [facility] 4 12:54:32 Essential hypertensio n 40795565 Active 2023 DEBI DEQUAN null, [facility] 4 12:54:46 Acute cerebral ischemia 7434686244525 9100 Active 2023 DEBI DEQUAN null, [facility] 4 12:55:20 Amnesia 24570711 Active 2023 DEBI DEQUAN null, [facility] 4 12:55:35 Aphasia 32586917 Active 2023 DEBI DEQUAN null, [facility] 4 12:55:47 Altered mental status 577426649 Active 2023 DEBI DEQUAN null, [facility] 4 12:56:03 Generalized anxiety disorder 68885203 Active 2023 Santos Jackson MD [address] [place] [address], [phone], [facility] 4 14:23:51 Spasm of back muscles 277547991 Active 2024 Santos Jackson MD [address] [place] [address], [phone], [facility] 5 15:33:27 Abnormal vision 9759938 Active 2024 Santos Jackson MD [address] [place] [phone], [facility] 5 15:16:27 Visual disturbance 27935720 Active 2024 Santos Jackson MD [address] [place], [address], [facility] 5 15:16:40 Abdominal bloating 101035216 Active 2024 Santos Jackson MD [address] [place], [address], [facility], Amparo 5 11:11:05 Pain of left shoulder region Active 2024 Santos Jackson MD [address] [place], [address], [facility], Amparo 5 12:15:08 Problem Notes None recorded. Medical Equipment None Reported. Allergies Allergen ID Allergen Name Allergen Category Reaction Reaction Severity Criticality Documentation Date Start Date Code Code System Note Provider Name and Address Organization Details Recorded Time 92200 lactose food,medi cation Not available Not available low 01/15/2024 6211 RxNorm DEBI zepeda [facility] 4 12:52:21 82359 magnesium medicatio n Not available Not available low 01/15/2024 6574 RxNorm DEBI zepeda [facility] 4 12:52:50 Medications Name Sig Start Date Stop Date Status Note LastModified by Organization Details LastModified Time Miralax 17 gram oral powder packet Take 1 packet every 8 hours by oral route as needed. active Not Available Not Available No t Available atorvastati n 40 mg tablet Take 1 tablet every day by oral route at bedtime. active Not Available Not Available No t Available carvedilol 25 mg tablet Take 1 tablet twice a day by oral route with meal(s). active Not Available Not Available No t Available acetaminoph en 325 mg tablet Take 2 tablets every 6 hours by oral route. active Not Available Not Available No t Available aspirin 325 mg tablet Take 1 tablet every day by oral route. active Not Available Not Available No t Available lisinopril 20 mg tablet Take 1 tablet twice a day by oral route. 12/27 completed Not Available Not Available Not Available prednisone 20 mg tablet TAKE 2 TABLETS BY MOUTH EVERY DAY for 5 days 08/23 completed Not Available Not Available Not Available Milk of Magnesia 400 mg/5 mL oral suspension Take 30 mL every day by oral route. active Not Available Not Available No t Available metronidazo le 500 mg tablet TAKE 1 TABLET BY MOUTH EVERY 12 HOURS FOR 10 DAYS 12/27 completed Not Available Not Available Not Available ciprofloxac in 500 mg tablet TAKE 1 TABLET BY MOUTH TWICE DAILY 12/27 completed Not Available Not Available Not Available hydrocodone 10 mg-acetamin ophen 325 mg tablet TAKE ONE TABLET BY MOUTH EVERY 8 HOURS NEEDED FOR PAIN FOR 30 DAYS 2024 active Not Available Not Available Not Avai lable ofloxacin 0.3 % ear drops INSTILL 10 DROPS INTO AFFECTED EAR(S) DAILY FOR 7 DAYS 08/23 completed Not Available Not Available Not Available amlodipine 10 mg tablet Take 1 tablet every day by oral route. active Not Available Not Available No t Available pantoprazol e 40 mg tablet,monroe yed release Take 1 tablet every day by oral route. active Not Available Not Available No t Available levofloxaci n 750 mg tablet Take 1 tablet every day by oral route for 7 days. 12/27 completed Not Available Not Available Not Available doxycycline hyclate 100 mg tablet TAKE 1 TABLET BY MOUTH TWICE DAILY FOR 14 DAYS 12/27 completed Not Available Not Available Not Available diazepam 5 mg tablet TAKE ONE TABLET BY MOUTH EVERY 8 HOURS NEEDED FOR ANXIETY 2024 active Not Available Not Available Not Avai lable amoxicillin 875 mg-potassiu m clavulanate 125 mg tablet TAKE 1 TABLET BY MOUTH TWICE DAILY FOR 7 DAYS 12/27 completed Not Available Not Available Not Available neomycin 3.5 mg/g-polymy nahum B 10,000 unit/g-dexa meth 0.1 % eye oint APPLY OINTMENT TO RIGHT EAR CANAL THREE TIMES DAILY FOR 14 DAYS 08/23 completed Not Available Not Available Not Available olmesartan 40 mg tablet Take 1 tablet every day by oral route. active Not Available Not Available No t Available ciprofloxac in 0.3 %-dexametha sone 0.1 % ear drops,suspe nsion INSTILL 4 DROPS INTO AFFECTED EAR TWICE DAILY FOR 7 DAYS 08/23 completed Not Available Not Available Not Available Wellbutrin XL 150 mg 24 hr tablet, extended release Take 1 tablet every day by oral route. 08/23 completed Not Available Not Available Not Available EC Aspirin 325 mg tablet,monroe yed release Take 1 tablet every day by oral route. 08/23 completed Not Available Not Available Not Available bupropion HCl 150 mg tablet,12 hr sustained-r elease(smok ing deterrent) Take 1 tablet every day by oral route. active Not Available Not Available No t Available Vitals Date Recorded Oxygen saturation Oxygen saturation in Arterial blood by Pulse oximetry Heart rate Respiratory rate Body temperature Systolic And Diastolic Provider Name and Address Organization Details Last Updated DateTime 5 96 % 96 % 76 /min 18 /min 97.6 [degF] 134/82 mm[Hg] Santos Jackson MD [address] [place] [address], [phone], [facility] 5 15:12:32 Date Recorded Oxygen saturation Oxygen saturation in Arterial blood by Pulse oximetry Heart rate Respiratory rate Body temperature Systolic And Diastolic Provider Name and Address Organization Details Last Updated DateTime 5 97 % 97 % 83 /min 20 /min 98.4 [degF] 130/70 mm[Hg] Santos Jackson MD [address] [place] [address], [phone], [facility] 5 12:09:20 Date Recorded Oxygen saturation Oxygen saturation in Arterial blood by Pulse oximetry Heart rate Respiratory rate Body temperature Systolic And Diastolic Provider Name and Address Organization Details Last Updated DateTime 4 95 % 95 % 65 /min 18 /min 98 [degF] 126/80 mm[Hg] Santos Jackson MD [address] [place] [address], [address], [facility] 4 10:11:51 Date Recorded Body weight Oxygen saturation Oxygen saturation in Arterial blood by Pulse oximetry Heart rate Respiratory rate Body temperature Systolic And Diastolic Provider Name and Address Organization Details Last Updated DateTime 5 11093.3 g 96 % 96 % 63 /min 18 /min 97.8 [degF] 122/66 mm[Hg] Santos Jackson MD [address] [place], [address], [facility] 5 11:09:51 Date Recorded Oxygen saturation Oxygen saturation in Arterial blood by Pulse oximetry Heart rate Respiratory rate Body temperature Systolic And Diastolic Systolic And Diastolic Provider Name and Address Organization Details Last Updated DateTime 4 96 % 96 % 78 /min 18 /min 97.2 [degF] 164/84 mm[Hg] 132/80 mm[Hg] Santos Jackson MD [address] [place], [address], [facility] 4 07:56:26 Social History Question Answer Notes LastModified by Organizat ion Details LastModified Time Tobacco Smoking Status Never Smoker Santos Jackson MD [address] [place], [phone], [facility] 01/29/2024 10:12:47 Do You Have An Advance Directive? No Information not available 01/15/2024 Are You Blind Or Do You Have Difficulty Seeing? No Information not available 01/29/2024 Is Blood Transfusion Acceptable In An Emergency? No Information not available 01/15/2024 What Is Your Code Status? Full Code Information not available 01/15/2024 Are You Deaf Or Do You Have Serious Difficulty Hearing? No Information not available 01/29/2024 Do You Have A Directive To Physicians? No Information not available 01/15/2024 Have There Been Any Changes To Your Family Or Social Situation? No Information not available 01/29/2024 Where Do You Live? 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 No Information not available 01/15/2024 Do You Have A Patient Advocate? No Information not available 01/15/2024 Have You Recently Traveled Abroad? No Information not available 01/29/2024 Do You Have Difficulty Walking Or Climbing Stairs? No Information not available 01/29/2024 Sex: Unknown Functional Status Question Answer Note LastModified by Organizat ion Details LastModified Time Are you currently employed? No Information not available 01/29/2024 Do you have transportation difficulties? No Information not available 01/29/2024 Are you able to walk independently without assistance or assistive devices? YESWOREST Information not available 01/29/2024 Do you have difficulty doing errands alone? No Information not available 01/29/2024 Are you able to care for yourself independently? No Information not available 01/29/2024 Do you have difficulty dressing, bathing, grooming, or toileting? No Information not available 01/29/2024 Mental Status Question Answer Note LastModified by Organizat ion Details LastModified Time Do you feel stressed (tense, restless, nervous, or anxious, or unable to sleep at night)? [id number] Information not available 01/29/2024 Do you have difficulty concentrating, remembering or making decisions? Yes Information no t available 01/29/2024 Family History Nothing Reported. Medical History No medical history recorded. Gynecological HistoryNo gynecological history recorded. Obstetrics History GPAL:G 0 P 0 0 0 0 Past Encounters Encounter ID Performer Location Encounter Start Date Encounter Closed Date Diagnosis/Indication Diagnosis SNOMED-CT Code Diagnosis ICD10 Code Diagnosis IMO Codes Diagnosis Note [id number] Santos Jackson MD [facility] ([facility]) [address] [place] [phone] 01/27/2024 11:23:33 01/30/2024 13:14:04 Generalized anxiety disorder 62656224 F41.1 It appears that the patient is having increasing anxiety and possibly increasing issues with depression . This would not be unusual given her history of CVA. We will start the medication Wellbutrin for her and follow-up in 2 months. Expressive language disorder 817476345 F80.1 Aphasia 11234681 R47.01 [id number] Santos Jackson MD [facility] ([facility]) [address] [place] [phone] 04/27/2024 13:28:30 05/01/2024 07:25:23 Essential hypertension 91446022 I10 Pressure was initially elevated and recommend monitoring blood pressure to ensure that it is below hypertensi on range on average. Expressive language disorder 860826539 F80.1 History is limited based on patient's ability to communicat e. [id number] Santos Jackson MD [facility] ([facility]) [address] [place] [phone] 06/01/2024 13:19:31 06/06/2024 09:19:56 Spasm of back muscles 322751554 M62.830 Patient was able to express that she has been having some pain on the left side of her body around her left shoulder. Expressive language disorder 619350698 F80.1 History is limited based on patient's ability to communicat e. Essential hypertension 75081901 I10 Blood pressure appears to be doing well with current medication s. Aphasia 35839834 R47.01 Generalize d anxiety disorder 50733489 F41.1 Patient appears to be tolerating Wellbutrin . Family has not expressed any concerns about her anxiety. Visual disturbance 88362 001 H53.9 Abdominal bloating 70878 9008 R14.0 Will start with flat and upright abdomen. Patient did not express significan t discomfort with palpation. [id number] Santos Jackson MD [facility] ([facility]) [address] [place] [phone] 12/21/2024 08:49:31 12/28/2024 09:11:53 Generalized anxiety disorder 35643200 F41.1 Patient appears to be tolerating Wellbutrin . Family has not expressed any concerns about her anxiety. Essential hypertension 96015028 I10 Blood pressure appears to be doing well with current medication s. Expressive language disorder 119614119 F80.1 History is limited based on patient's ability to communicat e. This is stable and unchanged. Pain of le ft shoulder region 9222969278 M25.512 [id number] Will obtain x-rays of the left shoulder. [id number] Santos Jackson MD [facility] ([facility]) [address] [place] [address] 03/01/2025 12:17:54 03/04/2025 13:44:33 Abdominal bloating 981030605 R14.0 03347 Abdominal Bloating: - Continue monitoring symptoms - Discuss management strategies with specialist s - Consider further assessment s if symptoms persist Health Concerns Section Related Observation LastModified by Organization Detai ls LastModified Time None Recorded Concern Status LastModified by Organization Details LastModified Time None Recorded Advance Directives Directive N: Payers Insurance Date Sequence Insurance Name Policy Number Policy Pate Covered Member ID Pate Member ID Guarantor Name 02/28/2025 1 [facility] [id number] Cody Brown [id number] Debbie Brown Notes Date Note Type Note Provider Name and Address Organization Details Recorded Time 01/27/2024 text/html Is a 73-year-old female that was seen at her [facility] apartment for concerns about anxiety. 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 Patient admits that she has been having anxiety attacks and tightness in her neck. Patient has been taking Valium and has not been helpful. The patient also has noticed that she has had increased mood issues as well. Santos Jackson MD [address] [place] [address], [phone], [facility] 01/29/2024 18:42:30 04/27/2024 text/html This is a 73-year-old female that was seen in her apartment at [facility]. Daughter had visited and had noticed that her right leg was swollen. Patient was also complaining of pain in that leg. There has been no known known trauma. No other concerns. No nursing concerns. Santos Jackson MD [address] [place] [address], [phone], [facility] 04/30/2024 07:59:14 06/01/2024 text/html This is a 73-year-old female that was seen at her apartment at [place]. Patient has a history of significant stroke and has difficulty communicating due to word salad. Nursing has noted increasing upper abdominal bloating. He has been having some muscle pain on the left side of her body. The patient denies any injury. She reports that she has had some blurred vision. Patient did have some skin issues. The patient showed a picture of her lower legs of 2 red streaks, however these lesions are not present today. Santos Jackson MD [address] [place] [address], [phone], [facility] 06/04/2024 15:18:14 12/21/2024 text/html This is a 74-year-old female that was seen at her apartment in assisted living for routine follow-up. Patient or assisted living staff do not have any acute concerns. Appears to be doing well on current medications. Medical issues appear to be stable. The patient does report some left shoulder pain. Santos Jackson MD [address] [place] [address], [phone], [facility] 12/27/2024 12:15:47 03/01/2025 text/html The patient is a 74-year-old female presenting with abdominal bloating. She describes a history of significant bloating, which comes and goes. Despite issues with abdominal comfort and bathroom use, there has been some improvement. No other identifiable concerns. Santos Jackson MD [address] [place] [address], [phone], [facility] 03/04/2025 11:12:06 OBGyn Episode No OBEpisode recorded.
--- NOTE | 2025-03-10 23:10 | CTR_ITS ---
PROCEDURE INFORMATION: Exam: CT Head Without Contrast Exam date and time: 03/11/2025 12:22 AM Age: 74 years old Clinical indication: Stroke-like symptoms; Speech disturbance; Additional info: Symptoms of acute stroke TECHNIQUE: Imaging protocol: Computed tomography of the head without contrast. Radiation optimization: All CT scans at this facility use at least one of these dose optimization techniques: automated exposure control; mA and/or kV adjustment per patient size (includes targeted exams where dose is matched to clinical indication); or iterative reconstruction. Other technique: STROKE PROTOCOL was implemented. COMPARISON: CT temporal bone wo con* [id number] 12/20/2023 10:41 AM RADIATION DOSE METRICS: Total DLP (mGy-cm): 969.08 FINDINGS: Brain: Encephalomalacia changes of the left parietal and superior temporal lobe. Cerebral ventricles: No ventriculomegaly. Paranasal sinuses: Visualized sinuses are unremarkable. No fluid levels. Mastoid air cells: Visualized mastoid air cells are well aerated. Bones: Unremarkable. No acute fracture. Soft tissues: Unremarkable. CT/CT head thrombolytic [id number] IMPRESSION: No definite acute findings.Chronic findings as above. ASSESSMENT: ASPECTS ([place] Stroke Program Early CT Score) is 10.
--- NOTE | 2025-03-10 23:10 | ECG_ITS ---
[employer] Test Date: 2025-03-10 Pat Name: Debbie Brown Department: Room: Gender: Female Flag Signalman: : 1950 Requested By: Edmond Hernandez Order Number: [id number] Beto MD: Braden Verdugo M.D. Measurements Intervals [place] Rate: 73 P: 0 ID: 0 QRS: 47 QRSD: 94 T: 31 QT: 427 QTc: 472 Interpretive Statements SUPRAVENTRICULAR RHYTHM, possibly sinus POSSIBLE RIGHT VENTRICULAR CONDUCTION DELAY [RSR (QR) IN V1/V2] ABNORMAL RHYTHM ECG Compared to ECG 09/30/2024 12:54:49 Supraventricular rhythm now present Sinus rhythm no longer present T-wave abnormality no longer present Electronically Signed On 03-12-2025 22:14:43 PROFESSIONAL SECURITY OFFICER by Braden Verdugo M.D. [email or web address]
--- NOTE | 2025-03-10 23:10 | XRR_ITS ---
PROCEDURE INFORMATION: Exam: XR Chest Exam date and time: 03/10/2025 11:12 PM Age: 74 years old Clinical indication: EMS arrival for AMS. Significant dysphasia. TECHNIQUE: Imaging protocol: Radiologic exam of the chest. Views: 1 view. COMPARISON: CT abdomen pelvis w con* [id number] 09/30/2024 2:19 PM FINDINGS: Lungs: Unremarkable. No consolidation. Pleural spaces: Unremarkable. No pleural effusion. No pneumothorax. Heart/Mediastinum: Unremarkable. No cardiomegaly. Bones/joints: Unremarkable. Soft tissues: Clips in the left axilla. XR/XR chest 1V portable [id number] IMPRESSION: No definite acute infiltrate or effusion.
[2025-03-10 23:16] LABS: Hematocrit 38.2 % (36-47); Hemoglobin 12.20 g/dL (11.27-16.99); Mean Corpuscular HGB Conc 31.9 g/dL (30-55); Mean Corpuscular Hemoglobin 26.8 pg (27-33); Mean Corpuscular Volume 83.8 fl (85-98); Nucleated Red Blood Cells % 0 %; Platelet Count 221 10^3/cmm (157-399); Red Blood Count 4.56 10^6/uL (3.85-5.65); White Blood Count 6.86 10^3/uL (3.29-11.43)
[2025-03-10] MEDS: haloperidol inj 5 mg/mL INJ 1 mL 3 MG IVP (23:17)
[2025-03-10] MEDS: ketamine 100 mg/mL Inj 5 mL 70 MG IVP (23:18)
[2025-03-10 23:25] LABS: INR 0.89 (0.8-1.2); Prothrombin Time 12.70 SECONDS (12.1-14.9)
[2025-03-10 23:27] LABS: Partial Thromboplastin Time 29.2 SECONDS (23.9-36.7)
[2025-03-10 23:30] LABS: Alanine Aminotransferase 16 U/L (0-33); Albumin Level 3.8 g/dL (3.5-5.2); Alkaline Phosphatase 128 U/L (35-105); Anion Gap 14.7 (5-19); Aspartate Amino Transferase 13 U/L (0-32); Blood Urea Nitrogen 23 mg/dL (8-23); Calcium 9.2 mg/dL (8.5-10.5); Carbon Dioxide 25 mmol/L (22-29); Chloride 106 mmol/L (98-107); Creatinine Clr Calc Pharmacy 51.2538; Globulin 2.7 g/dL (1.3-4.6); Glucose 124 mg/dL (65-115); Osmolality Calculated 299 mOsm/kg (285-295); Potassium 3.7 mmol/L (3.5-5.1); Sodium 142 mmol/L (136-145); Total Protein 6.5 g/dL (6.6-8.7)
[2025-03-11 00:03] LABS: Glucose Urine UA Negative (Normal); Nitrate Urine Negative (Negative); Specific Gravity, Urine 1.023 (1.005-1.030)
[2025-03-11 00:08] LABS: Add Urine Microscopic? YES; Universal Test for UA Present (0)
[2025-03-11 00:12] VITALS: BP 142/63; PULSE 69; O2SAT 94
[2025-03-11 00:30] VITALS: BP 138/74; PULSE 64; O2SAT 95
[2025-03-11 00:48] LABS: PCP Screen Urine Negative (Negative)
--- NOTE | 2025-03-11 00:53 | W.ED.AMS ---
HPI - Altered Mental Status General: Chief Complaint: Altered Mental Status Stated Complaint: AMS Time Seen by Provider: 03/10/25 23:01 History of Present Illness: Patient presents to the Emergency Department with altered mental status, confusion, and abnormal speech. The patient appears disoriented but is able to recognize being in the ER when asked. Speech is notably incoherent. The patient demonstrates some significant word-finding difficulties. Due to her expressive aphasia and word salad, she is unable to answer further questions appropriately. She does follow some commands. She seems very agitated that we are not understanding her. Related Data Home Medications ?Medication ?Instructions ?Recorded ?Confirmed acetaminophen 325 mg tablet 650 mg PO Q6H PRN pain/fever 09/30/24 09/30/24 amlodipine 10 mg tablet 10 mg PO DAILY 09/30/24 09/30/24 aspirin 325 mg tablet 325 mg PO DAILY 09/30/24 09/30/24 atorvastatin 40 mg tablet 40 mg PO BEDTIME 09/30/24 09/30/24 bupropion HCl 150 mg 24 hr tablet, 150 mg PO QAM 09/30/24 09/30/24 extended release carvedilol 25 mg tablet 25 mg PO BID 09/30/24 09/30/24 diazepam 5 mg tablet 5 mg PO Q8H PRN anxiety 09/30/24 09/30/24 magnesium hydroxide 400 mg/5 mL 1,305 ml PO DAILY PRN Constipation 09/30/24 09/30/24 oral suspension (Milk of Magnesia) olmesartan 40 mg tablet 40 mg PO DAILY 09/30/24 09/30/24 pantoprazole 40 mg tablet,delayed 40 mg PO QAM 09/30/24 09/30/24 release polyethylene glycol 3350 17 17 g PO DAILY PRN Constipation 09/30/24 09/30/24 gram/dose oral powder (Miralax) Previous Rx's ?Medication ?Instructions ?Recorded hydrocodone 10 mg-acetaminophen 1 tab PO Q8H PRN pain 30 days #90 01/26/24 325 mg tablet tabs ciprofloxacin HCl 500 mg tablet 500 mg PO BID #20 tabs 09/30/24 Allergies Allergy/AdvReac Type Severity Reaction Status Date / Time lactose Allergy Intermediate ADR-Gastrointestinal Verified 09/30/24 12:31 Upset MSG Allergy Intermediate ADR-Gastrointestinal Uncoded 09/30/24 12:31 Upset PFSH ED PFSH: Social History Smoking and tobacco/nicotine status: former use of tobacco/nicotine Physical Exam Const: COMMON NORMALS: alert HENMT: COMMON NORMALS: normocephalic and atraumatic HEAD & SCALP: normocephalic and atraumatic FACE & SINUS: face symmetric Eye: COMMON NORMALS: Equal, round and reactive pupils present and EOMs intact bilaterally PUPIL: Yes Equal, round and reactive pupils present Chest: CHEST: Yes Symmetrical chest wall rise Resp: COMMON NORMALS: normal respiratory effort and clear to auscultation bilaterally AUSCULTATION: clear to auscultation bilaterally Cardio: COMMON NORMALS: regular rate and regular rhythm RATE: regular rate RHYTHM: regular rhythm GI: COMMON NORMALS: Soft to palpation PALPATION: Yes Soft to palpation Extremity: COMMON NORMALS: no pedal edema Neuro: [place] COMA SCALE: document GCS findings [place] coma scale eye opening: Spontaneous [place] coma scale verbal response: Confused [place] coma scale motor response: Obey commands [place] coma scale total score: 14 COMMON NORMALS: moves all extremities and no focal motor deficits SENSORIUM/ORIENTATION: Yes alert COORDINATION/BALANCE: [id number]-[id number] test normal SPEECH: abnormal speech Details: other (Word salad. ) MOTOR EXAM: Pronator motor function not present and Normal motor muscle tone present throughout COORDINATION: [id number]-rz-[id number] test normal Psych: COMMON NORMALS: cooperative (To some degree) ATTITUDE: Yes agitated ACTIVITY/MOTOR BEHAVIOR: Yes appropriate eye contact, Yes psychomotor agitation, Yes fidgeting, Yes hyperactivity and Yes restless SPEECH: Yes incoherent and Yes excessive MOOD & AFFECT: Yes irritable Course Vital Signs: Vital signs: Vital Signs Temperature 97.5 F L 03/10/25 23:01 Pulse Rate 72 03/11/25 01:21 Respiratory Rate 18 03/10/25 23:01 Blood Pressure 138/74 03/11/25 00:30 Pulse Oximetry 95 03/11/25 01:21 Oxygen Delivery Me thod Room Air 03/11/25 01:21 MDM - Altered Mental Status Medical Decision Making This patient arrives quite agitated, fidgety, with psychomotor agitation as well. She had to be given ketamine to obtain a CT. Her concentration seemed impaired. After ketamine and a small dose of IV Haldol, she has been calm. She seems to understand a bit more and follow commands a bit better. We are told that the word salad is not a new finding for this patient. Her CBC is normal. Her BMP is nonactionable. Her chest x-ray is negative. Head CT is negative. She does have chronic findings that are significant, including encephalomalacia changes of the left parietal and superior temporal lobes. Drug screen is positive for benzodiazepines and opiates. Urinalysis is negative. Differential includes acute ischemia from stroke, hemorrhage, hypertensive encephalopathy, metabolic encephalopathy, unintentional medication overdose or side effect, This is a patient with chronic expressive aphasia who seems worse to her caregiving staff this evening. She arrives agitated. She is much more calm after ketamine, small dose of IV Haldol. Her blood pressures improved greatly from 166 systolic to 132 systolic. Her heart rate is 68. Saturations are 95% with respirations 13. Source of increased agitation, is unclear at this point. Seems to be resolved. No evidence of hemorrhage or new stroke by CT. With improvement, no clear cause of initiating event, and no focal symptoms of ischemia, hospitalization does not seem of benefit. She will be allowed discharge. She is stable at this point. Lab Data 03/10/25 23:00 03/10/25 23:00 Radiology Impressions Chest X-Ray 03/10/25 23:10 IMPRESSION: No definite acute infiltrate or effusion. Head CT 03/10/25 23:10 IMPRESSION: No definite acute findings.Chronic findings as above. ASSESSMENT: ASPECTS ([place] Stroke Program Early CT Score) is 10. ADDENDUM: 03/10/25 7573 COMMENT: THIS REPORT CONTAINS FINDINGS THAT MAY BE CRITICAL TO PATIENT CARE. The exam findings were verbally communicated by me to EDMOND KHAN via telephone conference at 11:39 PM LEATHER BELT LOOP CUTTER on 03/10/2025. The findings were acknowledged and understood. Laboratory Results WBC 6.86 10^3/uL (3.29-11.43) 03/10/25 23:00 RBC 4.56 10^6/uL (3.85-5.65) 03/10/25 23:00 Hgb 12.20 g/dL (11.27-16.99) 03/10/25 23:00 Hct 38.2 % (36-47) 03/10/25 23:00 MCV 83.8 fl (85-98) L 03/10/25 23:00 MCH 26.8 pg (27-33) L 03/10/25 23:00 MCHC 31.9 g/dL (30-55) 03/10/25 23:00 RDW 15.0 % (12.1-15.1) 03/10/25 23:00 Plt Count 221 10^3/cmm (157-399) 03/10/25 23:00 MPV 10.0 fL (7.4-10.4) 03/10/25 23:00 Neut % (Auto) 53.5 % 03/10/25 23:00 Lymph % (Auto) 34.3 % 03/10/25 23:00 [place] % (Auto) 8.3 % 03/10/25 23:00 Eos % (Auto) 3.2 % 03/10/25 23:00 Baso % (Auto) 0.6 % 03/10/25 23:00 Neut # (Auto) 3.67 10^3/uL (1.8-7.7) 03/10/25 23:00 Lymph # (Auto) 2.4 10^3/uL (0.8-4.8) 03/10/25 23:00 [place] # (Auto) 0.6 10^3/uL (0.2-0.9) 03/10/25 23:00 Eos # (Auto) 0.2 10^3/uL (0.0-0.8) 03/10/25 23:00 Baso # (Auto) 0.0 10^3/uL (0.0-0.1) 03/10/25 23:00 Nucleated RBC % (auto) 0 % 03/10/25 23:00 Nucleated RBCs # 0.0 /100WBC 03/10/25 23:00 PT 12.70 SECONDS (12.1-14.9) 03/10/25 23:00 INR 0.89 (0.8-1.2) 03/10/25 23:00 APTT 29.2 SECONDS (23.9-36.7) 03/10/25 23:00 Sodium 142 mmol/L (136-145) 03/10/25 23:00 Potassium 3.7 mmol/L (3.5-5.1) 03/10/25 23:00 Chloride 106 mmol/L (98-107) 03/10/25 23:00 Carbon Dioxide 25 mmol/L (22-29) 03/10/25 23:00 Anion Gap 14.7 (5-19) 03/10/25 23:00 BUN 23 mg/dL (8-23) 03/10/25 23:00 Creatinine 1.0 mg/dL (0.5-0.9) H 03/10/25 23:00 GFR Calculation Not Reportable 03/10/25 23:00 Glucose 124 mg/dL (65-115) H 03/10/25 23:00 POC Glucose 119 mg/dL (70-110) H 03/11/25 00:16 Calculated Osmolality 299 mOsm/kg (285-295) H 03/10/25 23:00 Calcium 9.2 mg/dL (8.5-10.5) 03/10/25 23:00 Total Bilirubin 0.2 mg/dL (0.15-1.2) 03/10/25 23:00 AST 13 U/L (0-32) 03/10/25 23:00 ALT 16 U/L (0-33) 03/10/25 23:00 Alkaline Phosphatase 128 U/L (35-105) H 03/10/25 23:00 Total Protein 6.5 g/dL (6.6-8.7) L 03/10/25 23:00 Albumin 3.8 g/dL (3.5-5.2) 03/10/25 23:00 Globulin 2.7 g/dL (1.3-4.6) 03/10/25 23:00 Urine Color Yellow (Yellow) 03/10/25 23:52 Urine Appearance Clear (CLEAR) 03/10/25 23:52 Urine pH 5.5 (5-7) 03/10/25 23:52 Ur Specific [place] 1.023 (1.005-1.030) 03/10/25 23:52 Urine Protein Negative (Negative) 03/10/25 23:52 Urine Glucose (UA) Negative (Normal) 03/10/25 23:52 Urine Ketones Trace (Negative) 03/10/25 23:52 Urine Blood Negative (Negative) 03/10/25 23:52 Urine Nitrate Negative (Negative) 03/10/25 23:52 Urine Bilirubin Negative (Negative) 11/02/25 23:52 Urine Urobilinogen 1.0 mg/dL (Negative) 03/10/25 23:52 Ur Leukocyte Esterase Negative (Negative) 03/10/25 23:52 Urine RBC 0-2 /hpf (0-2) 03/10/25 23:52 Urine WBC 0-5 /hpf (0-5) 03/10/25 23:52 Ur Squamous Epith Cells 0-5 /hpf (0-5) 03/10/25 23:52 Amorphous Sediment Not Reportable 03/10/25 23:52 Urine Bacteria None seen /hpf (NONE) 03/10/25 23:52 Hyaline Casts 2.46 /lpf 03/10/25 23:52 Urine Opiates Screen Positive ng/mL (Negative) H 03/10/25 23:52 Ur Barbiturates Screen Negative ng/mL (Negative) 03/10/25 23:52 Ur Phencyclidine Scrn Negative ng/mL (Negative) 03/10/25 23:52 Ur Amphetamines Screen Negative ng/mL (Negative) 03/10/25 23:52 U Benzodiazepines Scrn Positive ng/mL (Negative) H 03/10/25 23:52 Urine Cocaine Screen Negative ng/mL (Negative) 03/10/25 23:52 U Marijuana (THC) Screen Negative ng/mL (Negative) 03/10/25 23:52 All radiology interpretation(s) finalized by discharge Discharge Plan Discharge Patient Disposition: Home Clinical Impression: Altered mental status, Expressive aphasia Condition: Stable Prescriptions: No Action hydrocodone-acetaminophen 10-325 mg tablet 1 tab PO Q8H PRN (Reason: pain) 30 Days Qty: 90 0RF atorvastatin 40 mg Tablet 40 mg PO BEDTIME carvedilol 25 mg Tablet 25 mg PO BID Rx Instructions: must administer with a meal/food acetaminophen 325 mg Tablet 650 mg PO Q6H PRN (Reason: pain/fever) aspirin 325 mg Tablet 325 mg PO DAILY magnesium hydroxide [Milk of Magnesia] 400 mg/5 mL Suspension 1,305 ml PO DAILY PRN (Reason: Constipation) amlodipine 10 mg Tablet 10 mg PO DAILY pantoprazole 40 mg Tablet,Delayed Release (Dr/Ec) 40 mg PO QAM polyethylene glycol 3350 [Miralax] 17 gram/dose Powder 17 g PO DAILY PRN (Reason: Constipation) olmesartan 40 mg Tablet 40 mg PO DAILY bupropion HCl 150 mg Tablet Extended Release 24 Hr 150 mg PO QAM diazepam 5 mg tablet 5 mg PO Q8H PRN (Reason: anxiety) ciprofloxacin HCl 500 mg tablet 500 mg PO BID Qty: 20 0RF Discharge Orders: Discharge ED (Routine); Ordered 03/11/25 Ordered By: Edmond Khan Referrals: Giuseppe Ramey DO [Primary Care Provider, Family Practice] - 1-3 days Patient Instructions: Altered Mental Status (ED), Opioid Safety, Pain Management, Patient Portal & [facility] Instructions Activity Restrictions/Additional Instructions: Follow-up with your doctor. Return for any new or worsening symptoms. Print Language: Citizen Of [place] Coding Level of Care Code ED Service Station Equipment Mechanic for Trinidad Ramachandran
[2025-03-11 01:21] VITALS: PULSE 72; O2SAT 95
[2025-03-11 02:01] VITALS: BP 150/69; O2SAT 94
[2025-03-11 02:32] VITALS: BP 151/91; PULSE 73; O2SAT 93
[2025-03-11 02:33] VITALS: BP 143/65; PULSE 65; O2SAT 94
--- NOTE | 2025-03-11 17:35 | DCPLANNER ---
messaged neuro for er f/u
== END 2025-03-11 02:36 | disposition home or self-care (01) ==
PROVIDERS: Emergency Provider Emergency Medicine; PCP Family Medicine
DX: R41.82 Altered mental status, unspecified (principal); R47.01 Aphasia; Z79.82 Long term (current) use of aspirin; Z87.891 Personal history of nicotine dependence
CPT/HCPCS: 36416; 70450; 71045; 80053; 80306; 81001; 82962; 85025; 85610; 85730; 93005; 96374; 96375; 99285; 99291; 99292; J1630; J3490

== ENCOUNTER 2025-04-20 17:25 | Emergency (ER) | payer OTHER, SELFPAY ==
[2025-04-20 17:25] VITALS: BP 132/61; PULSE 65; RESP 18; TEMP 36.6; O2SAT 97
--- NOTE | 2025-04-20 17:28 | CTR_ITS ---
PROCEDURE INFORMATION: Exam: CT Head Without Contrast Exam date and time: 04/20/2025 5:39 PM Age: 74 years old Clinical indication: Altered mental status/memory loss; EMS arrival from senior living for visual hallucinations. History of stroke. ; Additional info: Encephalopathy, altered mental status TECHNIQUE: Imaging protocol: Computed tomography of the head without contrast. Radiation optimization: All CT scans at this facility use at least one of these dose optimization techniques: automated exposure control; mA and/or kV adjustment per patient size (includes targeted exams where dose is matched to clinical indication); or iterative reconstruction. COMPARISON: CT head thrombolytic [id number] 03/11/2025 12:22 AM RADIATION DOSE METRICS: Total DLP (mGy-cm): 1050.9 FINDINGS: Brain: No acute intra-axial hemorrhage. No masses. Normal lomeli-white matter differentiation. No midline shift or mass effect. There is an old watershed infarct in the left hemisphere involving posterior left frontal lobe, adjacent parietal and temporal lobes. Mild patchy hypodensity in hemispheric white matter bilaterally most likely due to chronic microangiopathy. Cerebral ventricles: No ventriculomegaly. Paranasal sinuses: Visualized sinuses are unremarkable. No fluid levels. Mastoid air cells: Visualized mastoid air cells are well aerated. Bones: Unremarkable. No acute fracture. Soft tissues: Unremarkable. Other findings: There is moderate left hemispheric atrophy and milder right hemispheric atrophy. CT/CT head wo con* [id number] IMPRESSION: No acute intracranial abnormality.
--- NOTE | 2025-04-20 17:28 | XRR_ITS ---
PROCEDURE INFORMATION: Exam: XR Chest Exam date and time: 04/20/2025 5:30 PM Age: 74 years old Clinical indication: Other: Weakness TECHNIQUE: Imaging protocol: Radiologic exam of the chest. Views: 1 view. COMPARISON: CR (CHEST, ) 03/10/2025 11:12 PM FINDINGS: Lungs: Unremarkable. No consolidation. Pleural spaces: Unremarkable. No pleural effusion. No pneumothorax. Heart/Mediastinum: Borderline cardiomegaly. Bones/joints: Unremarkable. XR/XR chest 1V portable [id number] IMPRESSION: No acute findings.
--- OUTSIDE RECORDS SUMMARY | 2025-04-20 17:28 | XMS_ITS | Data Portability ---
Author Organization [facility] Amparo Curran [facility] Address [address] [address] Care Team Providers Care Agriculturist Name Role Phone SANTOS JACKSON Primary Care Provider [phone] Assessment Encounter Date Assessment Date Assessment LastModified [...] [email or web address] 2 Stefan Robbins MD, [address] [place], [address], 13:29:49 Procedures None recorded. Surgeries None recorded. Imaging None recorded. Medication Orders Wellbutrin XL 150 mg 24 hr tablet, extended release 2023 025 [employer], [address], [address], [place], [address], 18:59:46 Patient TargetsNo targets recorded. 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 [email or web address] [facility] [address], [address], 12/25/2024 14:07:25 Result Notes None recorded. Problems Name Problem SNOMED Code Status Onset Date Resolution Date Notes Provider Name and Address Organization Details Recorded Time Malignant neoplastic disease 948294434 Active 2023 DEBI zepeda [facility] 4 12:54:13 Expressive language disorder 302328624 Active 2023 DEBI MAJANOErick zepeda, [facility] 4 12:54:32 Essential hypertensio n 53936533 Active 2023 DEBI DEQUAN null, [facility] 4 12:54:46 Acute cerebral ischemia 6755457879965 9100 Active 2023 DEBI DEQUAN null, [facility] 4 12:55:20 Amnesia 03918907 Active 2023 DEBI DEQUAN null, [facility] 4 12:55:35 Aphasia 75220988 Active 2023 DEBI DEQUAN null, [facility] 4 12:55:47 Altered mental status 367967709 Active 2023 DEBI DEQUAN null, [facility] 4 12:56:03 Generalized anxiety disorder 97055656 Active 2023 Santos Jackson MD [address] [place] [address], [phone], [facility] 4 14:23:51 Spasm of back muscles 927339225 Active 2024 Santos Jackson MD [address] [place] [address], [phone], [facility] 5 15:33:27 Abnormal vision 6175505 Active 2024 Santos Jackson MD [address] [place] [phone], [facility] 5 15:16:27 Visual disturbance 20622311 Active 2024 Santos Jackson MD [address] [place], [phone], [facility] 5 15:16:40 Abdominal bloating 691239051 Active 2024 Satnos Jackson MD [address] [place], [address], [facility] Amparo 5 11:11:05 Pain of left shoulder region Active 2024 Santos Jackson MD [address] [place], [phone], [facility] 5 12:15:08 Problem Notes None recorded. Medical Equipment None Reported. Allergies Allergen ID Allergen Name Allergen Category Reaction Reaction Severity Criticality Documentation Date Start Date Code Code System Note Provider Name and Address Organization Details Recorded Time 69306 lactose food,medi cation Not available Not available low 01/15/2024 6211 RxNorm DEBI zepeda [facility] 4 12:52:21 32948 magnesium medicatio n Not available Not available low 01/15/2024 6574 RxNorm DEBI zepeda [facility] 4 12:52:50 Medications Name Sig Start [...] MOUTH EVERY 8 HOURS NEEDED FOR PAIN 2024 active Not Available Not Available Not [...] t Available Vitals Date Recorded Oxygen saturation Heart rate Respiratory rate Body temperature Systolic And Diastolic Provider Name and Address Organization Details Last Updated DateTime 5 96 % 76 /min 18 /min 97.6 [degF] 134/82 mm[Hg] Santos Jackson MD [address] [place] [address], [phone], [facility] 5 15:12:32 Date Recorded Oxygen saturation Heart rate Respiratory rate Body temperature Systolic And Diastolic Provider Name and Address Organization Details Last Updated DateTime 5 97 % 83 /min 20 /min 98.4 [degF] 130/70 mm[Hg] Santos Jackson MD [address] [place] [address], [phone], [facility] 5 12:09:20 Date Recorded Oxygen saturation Heart rate Respiratory rate Body temperature Systolic And Diastolic Provider Name and Address Organization Details Last Updated DateTime 4 95 % 65 /min 18 /min 98 [degF] 126/80 mm[Hg] Santos Jackson MD [address] [place] [address], [phone], [facility] 4 10:11:51 Date Recorded Body weight Oxygen saturation Heart rate Respiratory rate Body temperature Systolic And Diastolic Provider Name and Address Organization Details Last Updated DateTime 5 51418.3 g 96 % 63 /min 18 /min 97.8 [degF] 122/66 mm[Hg] Santos Jackson MD [address] [place], [address], [facility] 5 11:09:51 Date Recorded Oxygen saturation Heart rate Respiratory rate Body temperature Systolic And Diastolic Systolic And Diastolic Provider Name and Address Organization Details Last Updated DateTime 4 96 % 78 /min 18 /min 97.2 [degF] 164/84 mm[Hg] 132/80 mm[Hg] Santos Jackson MD [address] [place], [address], [facility] 4 07:56:26 Social History Question Answer Notes LastModified by Organizat ion Details LastModified Time Tobacco Smoking Status Never Smoker Santos Jackson MD [address] [place], [address], [facility] 01/29/2024 10:12:47 Do You Have An [...] Do You Have A Medical Power Of Pet Training Instructor? No Information not available 01/15/2024 Do You [...] anxious, or unable to sleep at night)? [id number] Information not available 01/29/2024 Do you have [...] ICD10 Code Diagnosis IMO Codes Diagnosis Note [id number] Santos Jackson MD [facility]) [address] [place] [phone] 01/27/2024 11:23:33 01/30/2024 13:14:04 Generalized anxiety disorder 45376851 F41.1 It appears that the patient is having increasing anxiety and possibly increasing issues with depression . This would not be unusual given her history of CVA. We will start the medication Wellbutrin for her and follow-up in 2 months. Expressive language disorder 281728133 F80.1 Aphasia 59234972 R47.01 [id number] Santos Jackson MD [facility] ([facility]) [address] [place] [phone] 04/27/2024 13:28:30 05/01/2024 07:25:23 Essential hypertension 10151897 I10 Pressure was initially elevated and recommend monitoring blood pressure to ensure that it is below hypertensi on range on average. Expressive language disorder 575551818 F80.1 History is limited based on patient's ability to communicat e. [id number] Santos Jackson MD [facility] ([facility]) [address] [place] [phone] 06/01/2024 13:19:31 06/06/2024 09:19:56 Spasm of back muscles 916746191 M62.830 Patient was able to express that she has been having some pain on the left side of her body around her left shoulder. Expressive language disorder 451175113 F80.1 History is limited based on patient's ability to communicat e. Essential hypertension 60869820 I10 Blood pressure appears to be doing well with current medication s. Aphasia 72868993 R47.01 Generalize d anxiety disorder 91408948 F41.1 Patient appears to be tolerating Wellbutrin . Family has not expressed any concerns about her anxiety. Visual disturbance 11507 001 H53.9 Abdominal bloating 29465 9008 R14.0 Will start with flat and upright abdomen. Patient did not express significan t discomfort with palpation. [id number] Santos Jackson MD [facility] ([facility]) [address] [place] [phone] 12/21/2024 08:49:31 12/28/2024 09:11:53 Generalized anxiety disorder 08750626 F41.1 Patient appears to be tolerating Wellbutrin . Family has not expressed any concerns about her anxiety. Essential hypertension 52105855 I10 Blood pressure appears to be doing well with current medication s. Expressive language disorder 671393478 F80.1 History is limited based on patient's ability to communicat e. This is stable and unchanged. Pain of le ft shoulder region 8479576844 M25.512 [id number] Will obtain x-rays of the left shoulder. [id number] Santos Jackson MD [facility] ([facility]) [address] [place] [phone] 03/01/2025 12:17:54 03/04/2025 13:44:33 Abdominal bloating 674139686 R14.0 78151 Abdominal Bloating: - Continue monitoring symptoms - [...] Member ID Pate Member ID Guarantor Name 03/28/2025 1 [facility] [id number] Cody Brown [id number] Debbie Brown Notes Date Note Type Note Provider Name and Address Organization Details Recorded Time 01/27/2024 text/html Is a 73-year-old female that was seen at her [facility] apartment for concerns about anxiety. 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 Patient admits that she has been having anxiety attacks and tightness in her neck. Patient has been taking Valium and has not been helpful. The patient also has noticed that she has had increased mood issues as well. Santos Jackson MD [address] [place] [address], [phone], [facility] 01/29/2024 18:42:30 04/27/2024 text/html This is a 73-year-old female that was seen in her apartment at [facility]. Daughter had visited and had noticed that her right leg was swollen. Patient was also complaining of pain in that leg. There has been no known known trauma. No other concerns. No nursing concerns. Santos Jackson MD [address] [place] [address], [phone], [facility] 04/30/2024 07:59:14 06/01/2024 text/html This is a 73-year-old female that was seen at her apartment at [place]. Patient has a history of significant stroke [...] are not present today. Santos Jackson MD [address] [place] [address], [phone], [facility] 06/04/2024 15:18:14 12/21/2024 text/html This is a 74-year-old female that was seen at her apartment in assisted living for routine follow-up. Patient or assisted living staff do not have any acute concerns. Appears to be doing well on current medications. Medical issues appear to be stable. The patient does report some left shoulder pain. Santos Jackson MD [address] [place] [address], [phone], [facility] 12/27/2024 12:15:47 03/01/2025 text/html The patient is a 74-year-old female presenting with abdominal bloating. She describes a history of significant bloating, which comes and goes. Despite issues with abdominal comfort and bathroom use, there has been some improvement. No other identifiable concerns. Santos Jackson MD [address] [place] [address], [phone], [facility] 03/04/2025 11:12:06 OBGyn Episode No OBEpisode recorded.
--- OUTSIDE RECORDS SUMMARY | 2025-04-20 17:28 | XMS_ITS | Continuity of Care Document ---
Author Organization [place] - Darryl Abreu [facility] Amparo Reeves, [facility] ([facility]) Address [address] [place] [address] Care Team Providers Care Special Needs Bus Driver Name Role Phone SANTOS JACKSON Primary Care Provider Assessment Encounter Date Assessment Date Assessment LastModified by Organization Details LastModified Time 03/01/2025 03/01/2025 74-year-old female with history of abdominal bloating presenting with concerns of continued bloating. The patient describes slight symptom improvement but ongoing bathroom difficulties. Resolution remains incomplete, and management approaches continue to concern the patient. dcrase Not available 03/04/2025 11:11:41 Plan of Treatment Reminders Order Date Submit Date Provider Last Modified By Organization Details Last Modified Time Details Appointments None record ed. Lab None record ed. Referral None record ed. Procedures None record ed. Surgeries None record ed. Imaging None record ed. Medication Orders None record ed. Patient TargetsNo targets recorded. Patient Instructions Encounter Date Encounter Id Patient Instructions Last Modified By Organization Details Last Modified Time 03/01/2025 [id number] - Keep track of your abdominal bloating [...] Not available 03/03/2025 09:12:24 Reason for Referral None Reported. Results Created Date Observation Date Name Description Value Unit Range Abnormal Flag Note LastModifiedBy Organization Detail LastModifiedTime Result Notes None recorded. Problems Name Problem SNOMED Code Status Onset Date Resolution Date Notes Provider Name and Address Organization Details Recorded Time Malignant neoplastic disease 908754088 Active 2023 DEBI zepeda [facility] 4 12:54:13 Expressive language disorder 304766704 Active 2023 DEBI MAJANOG duane [facility] 4 12:54:32 Essential hypertensio n 67696673 Active 2023 DEBISA DEQUAN zepeda [facility] 4 12:54:46 Acute cerebral ischemia 9568311558887 9100 Active 2023 DEBI DEQUAN zepeda [facility] 4 12:55:20 Amnesia 24361152 Active 2023 DEBISA DEQUAN zepeda [facility] 4 12:55:35 Aphasia 47123136 Active 2023 DEBISA DEQUAN zepeda [facility] 4 12:55:47 Altered mental status 919675422 Active 2023 DEBISA DEQUAN zepeda [facility] 4 12:56:03 Generalized anxiety disorder 52452236 Active 2023 Santos Jackson MD [address] [place] [address], [phone], [facility] 4 14:23:51 Spasm of back muscles 806691062 Active 2024 Santos Jackson MD [address] [place] [address], [phone], [facility] 5 15:33:27 Abnormal vision 0343672 Active 2024 Santos Jackson MD [address] [place] [address], [phone], [facility] 5 15:16:27 Visual disturbance 02799059 Active 2024 Santos Jackson MD [address] [place] [address], [phone], [facility] 5 15:16:40 Abdominal bloating 373028841 Active 2024 Santos Jackson MD [address] [place] [address], [phone], [facility] 5 11:11:05 Pain of left shoulder region Active 2024 Santos Jackson MD [address] [place] [address], [phone], [facility] 5 12:15:08 Problem Notes None recorded. Medical Equipment None Reported. Allergies Allergen ID Allergen Name Allergen Category Reaction Reaction Severity Criticality Documentation Date Start Date Code Code System Note Provider Name and Address Organization Details Recorded Time 42605 lactose food,medi cation Not available Not available low 01/15/2024 6211 RxNorm DEBI zepeda [facility] 4 12:52:21 46604 magnesium medicatio n Not available Not available low 01/15/2024 6574 RxNorm [facility] 4 12:52:50 Medications Name Sig Start Date [...] Available No t Available Vitals Date Recorded Body weight Oxygen saturation Heart rate Respiratory rate Body temperature Systolic And Diastolic Provider Name and Address Organization Details Last Updated DateTime 5 92988.3 g 96 % 63 /min 18 /min 97.8 [degF] 122/66 mm[Hg] Santos Jackson MD [address] [place] [address], [phone], [facility] 5 11:09:51 Social History Question Answer Notes LastModified by Organizat ion Details LastModified Time Tobacco Smoking Status Never Smoker Santos Jackson MD [address] [place] [address], [phone], [facility] 01/29/2024 10:12:47 Do You [...] Do You Have A Medical Power Of Director Of Medical Education? No Information not available 01/15/2024 Do You Have An Out Of Hospital DNR? No Information not available 01/15/2024 Do You Have A Patient Advocate? No Information not available 01/15/2024 Have You Recently Traveled Abroad? No Information not available 01/29/2024 Do You Have Difficulty Walking Or Climbing Stairs? No Information not available 01/29/2024 Sex: Unknown Functional Status Question Answer Note LastModified by [employer] Details LastModified Time Are you currently employed? [...] Mental Status Question Answer Note LastModified by [employer] Details LastModified Time Do you feel stressed (tense, restless, nervous, or anxious, or unable to sleep at night)? [id number] Information not available 01/29/2024 Do you have [...] ICD10 Code Diagnosis IMO Codes Diagnosis Note [id number] Santos Jackson MD [facility] ([facility]) [address] [place] [address] 03/01/2025 12:17:54 03/04/2025 13:44:33 Abdominal bloating 747295471 R14.0 36557 Abdominal Bloating: - Continue monitoring symptoms - Discuss management strategies with specialist s - Consider further assessment s if symptoms persist Health Concerns Section Related Observation LastModified by Organization Detai ls LastModified Time None Recorded Concern Status LastModified by Organization Details LastModified Time None Recorded Payers Encounter Date Sequence Insurance Name Policy Number Policy Pate Covered Member ID Pate Member ID Guarantor Name 03/01/2025 1 [facility] [id number] Cody Brown [id number] Debbie Brown Notes Date Note Type Note Provider Name and Address Organization Details Recorded Time 03/01/2025 text/html The patient is a 74-year-old female presenting with abdominal bloating. She describes a history of significant bloating, which comes and goes. Despite issues with abdominal comfort and bathroom use, there has been some improvement. No other identifiable concerns. Santos Jackson MD [address] [place] [address], [phone], [facility] [place] - [facility] 03/04/2025 11:12:06 OBGyn Episode No OBEpisode recorded.
[2025-04-20 18:09] LABS: Hematocrit 37.7 % (36-47); Hemoglobin 11.80 g/dL (11.27-16.99); Mean Corpuscular HGB Conc 31.3 g/dL (30-55); Mean Corpuscular Hemoglobin 26.3 pg (27-33); Mean Corpuscular Volume 84.2 fl (85-98); Nucleated Red Blood Cells % 0 %; Platelet Count 252 10^3/cmm (157-399); Red Blood Count 4.48 10^6/uL (3.85-5.65); White Blood Count 6.65 10^3/uL (3.29-11.43)
[2025-04-20 18:32] LABS: Lactic Sepsis W/Reflex 1.4 mmol/L (0.5-2.2)
[2025-04-20 18:33] LABS: Alanine Aminotransferase 8 U/L (0-33); Albumin Level 3.7 g/dL (3.5-5.2); Alkaline Phosphatase 118 U/L (35-105); Anion Gap 16.8 (5-19); Aspartate Amino Transferase 11 U/L (0-32); Blood Urea Nitrogen 19 mg/dL (8-23); Calcium 8.6 mg/dL (8.5-10.5); Carbon Dioxide 24 mmol/L (22-29); Chloride 106 mmol/L (98-107); Globulin 2.8 g/dL (1.3-4.6); Glucose 117 mg/dL (65-115); Osmolality Calculated 299 mOsm/kg (285-295); Potassium 3.8 mmol/L (3.5-5.1); Sodium 143 mmol/L (136-145); Total Protein 6.5 g/dL (6.6-8.7)
[2025-04-20 18:45] VITALS: BP 170/52; PULSE 62; RESP 17; O2SAT 93
[2025-04-20 18:49] LABS: Respiratory Syncytial Virus Ce NEGATIVE (Negative); SARS-CoV-2 PCR NEGATIVE (Negative)
[2025-04-20 19:50] LABS: Glucose Urine UA Negative (Normal); Nitrate Urine Negative (Negative); Specific Gravity, Urine 1.006 (1.005-1.030)
[2025-04-20 20:00] VITALS: BP 126/68; PULSE 64; O2SAT 94
--- NOTE | 2025-04-20 20:25 | W.ED.GENADLT ---
HPI - General Adult General: Chief complaint: General Medical Stated complaint: ams Time Seen by Provider: 04/20/25 17:59 History of Present Illness: 74-year-old female with a history of CVA, with severe expressive aphasia and word [facility] reported that she was observed to be hallucinating earlier in the evening. She was evidently somewhat agitated. No known cause was identified. She was sent here for evaluation. She seems to indicate that her throat was sore, but otherwise is relatively pleasant, and without complaint. Related Data Home Medications ?Medication ?Instructions ?Recorded ?Confirmed acetaminophen 325 mg tablet 650 mg PO Q6H PRN pain/fever 09/30/24 09/30/24 amlodipine 10 mg tablet 10 mg PO DAILY 09/30/24 09/30/24 aspirin 325 mg tablet 325 mg PO DAILY 09/30/24 09/30/24 atorvastatin 40 mg tablet 40 mg PO BEDTIME 09/30/24 09/30/24 bupropion HCl 150 mg 24 hr tablet, 150 mg PO QAM 09/30/24 09/30/24 extended release carvedilol 25 mg tablet 25 mg PO BID 09/30/24 09/30/24 diazepam 5 mg tablet 5 mg PO Q8H PRN anxiety 09/30/24 09/30/24 magnesium hydroxide 400 mg/5 mL 1,305 ml PO DAILY PRN Constipation 09/30/24 09/30/24 oral suspension (Milk of Magnesia) olmesartan 40 mg tablet 40 mg PO DAILY 09/30/24 09/30/24 pantoprazole 40 mg tablet,delayed 40 mg PO QAM 09/30/24 09/30/24 release polyethylene glycol 3350 17 17 g PO DAILY PRN Constipation 09/30/24 09/30/24 gram/dose oral powder (Miralax) Previous Rx's ?Medication ?Instructions ?Recorded hydrocodone 10 mg-acetaminophen 1 tab PO Q8H PRN pain 30 days #90 01/26/24 325 mg tablet tabs ciprofloxacin HCl 500 mg tablet 500 mg PO BID #20 tabs 09/30/24 Allergies Allergy/AdvReac Type Severity Reaction Status Date / Time lactose Allergy Intermediate ADR-Gastrointestinal Verified 09/30/24 12:31 Upset MSG Allergy Intermediate ADR-Gastrointestinal Uncoded 09/30/24 12:31 Upset PFS ED PFSH: Social History Smoking and tobacco/nicotine status: former use of tobacco/nicotine Physical Exam Const: COMMON NORMALS: no acute distress GENERAL APPEARANCE: cooperative; not ill appearing and not frail appearing HENMT: COMMON NORMALS: normocephalic, atraumatic and Normal external nose present HEAD & SCALP: normocephalic and atraumatic FACE & SINUS: normal facial exam and face symmetric NOSE: Normal external nose present Eye: COMMON NORMALS: Equal, round and reactive pupils present and EOMs intact bilaterally PUPIL: Yes Equal, round and reactive pupils present Neck/C-Spine: GENERAL: Yes trachea midline Chest: CHEST: Yes Symmetrical chest wall rise Resp: COMMON NORMALS: normal respiratory effort, No retractions, No use of accessory muscles and clear to auscultation bilaterally AUSCULTATION: clear to auscultation bilaterally Cardio: COMMON NORMALS: regular rate and regular rhythm RATE: regular rate RHYTHM: regular rhythm GI: COMMON NORMALS: Normal to inspection, nondistended, normoactive bowel sounds present Extremity: COMMON NORMALS: no pedal edema Neuro: CHICHO COMA SCALE: document GCS findings [place] coma scale eye opening: Spontaneous Chicho coma scale verbal response: Confused [place] coma scale motor response: Obey commands Chicho coma scale total score: 14 SPEECH: abnormal speech Details: other and expressive aphasia (With word salad) SENSORY EXAM: Yes extremities (intact) Psych: COMMON NORMALS: speech normal SPEECH: Yes normal speech Skin: COMMON NORMALS: no rashes or lesions noted GENERAL SKIN EXAM: no rashes or lesions noted Course Vital Signs: Vital signs: Vital Signs Temperature 97.8 F 04/20/25 17:25 Pulse Rate 67 04/20/25 20:46 Respiratory Rate 18 04/20/25 20:46 Blood Pressure 126/68 04/20/25 20:46 Pulse Oximetry 94 04/20/25 20:46 Oxygen Delivery Me thod Room Air 04/20/25 20:00 [facility] - General Adult Medical Decision Making The patient's vitals are stable. She is afebrile. She is not agitated, pleasant, and does not appear to be responding to any false stimuli. CBC is normal. Creatinine is 1.2. Chest x-ray is nonacute. Head CT is negative Urinalysis is negative. Swabs for flu COVID and RSV are negative. Her vitals are stable. She is given 1 mg Ativan IM to help her rest this evening. She stable for discharge back to assisted care. To return for any problems. Lab Data 04/20/25 17:52 04/20/25 17:52 Radiology Impressions Chest X-Ray 04/20/25 17:28 IMPRESSION: No acute findings. Head CT 04/20/25 17:28 IMPRESSION: No acute intracranial abnormality. Laboratory Results WBC 6.65 10^3/uL (3.29-11.43) 04/20/25 17:52 RBC 4.48 10^6/uL (3.85-5.65) 04/20/25 17:52 Hgb 11.80 g/dL (11.27-16.99) 04/20/25 17:52 Hct 37.7 % (36-47) 04/20/25 17:52 MCV 84.2 fl (85-98) L 04/20/25 17:52 MCH 26.3 pg (27-33) L 04/20/25 17:52 MCHC 31.3 g/dL (30-55) 04/20/25 17:52 RDW 15.1 % (12.1-15.1) 04/20/25 17:52 Plt Count 252 10^3/cmm (157-399) 04/20/25 17:52 MPV 9.9 fL (7.4-10.4) 04/20/25 17:52 Neut % (Auto) 52.4 % 04/20/25 17:52 Lymph % (Auto) 35.5 % 04/20/25 17:52 [place] % (Auto) 7.8 % 04/20/25 17:52 Eos % (Auto) 3.2 % 04/20/25 17:52 Baso % (Auto) 0.9 % 04/20/25 17:52 Neut # (Auto) 3.49 10^3/uL (1.8-7.7) 04/20/25 17:52 Lymph # (Auto) 2.4 10^3/uL (0.8-4.8) 04/20/25 17:52 [place] # (Auto) 0.5 10^3/uL (0.2-0.9) 04/20/25 17:52 Eos # (Auto) 0.2 10^3/uL (0.0-0.8) 04/20/25 17:52 Baso # (Auto) 0.1 10^3/uL (0.0-0.1) 04/20/25 17:52 Nucleated RBC % (auto) 0 % 04/20/25 17:52 Nucleated RBCs # 0.0 /100WBC 04/20/25 17:52 Sodium 143 mmol/L (136-145) 04/20/25 17:52 Potassium 3.8 mmol/L (3.5-5.1) 04/20/25 17:52 Chloride 106 mmol/L (98-107) 04/20/25 17:52 Carbon Dioxide 24 mmol/L (22-29) 04/20/25 17:52 Anion Gap 16.8 (5-19) 04/20/25 17:52 BUN 19 mg/dL (8-23) 04/20/25 17:52 Creatinine 1.2 mg/dL (0.5-0.9) H 04/20/25 17:52 GFR Calculation Not Reportable 04/20/25 17:52 Glucose 117 mg/dL (65-115) H 04/20/25 17:52 Calculated Osmolality 299 mOsm/kg (285-295) H 04/20/25 17:52 Lactic Acid 1.4 mmol/L (0.5-2.2) 04/20/25 17:52 Calcium 8.6 mg/dL (8.5-10.5) 04/20/25 17:52 Total Bilirubin 0.3 mg/dL (0.15-1.2) 04/20/25 17:52 AST 11 U/L (0-32) 04/20/25 17:52 ALT 8 U/L (0-33) 04/20/25 17:52 Alkaline Phosphatase 118 U/L (35-105) H 04/20/25 17:52 Total Protein 6.5 g/dL (6.6-8.7) L 04/20/25 17:52 Albumin 3.7 g/dL (3.5-5.2) 04/20/25 17:52 Globulin 2.8 g/dL (1.3-4.6) 04/20/25 17:52 Urine Color Yellow (Yellow) 04/20/25 19:40 Urine Appearance Clear (CLEAR) 04/20/25 19:40 Urine pH 6.0 (5-7) 04/20/25 19:40 Ur Specific [place] 1.006 (1.005-1.030) 04/20/25 19:40 Urine Protein Negative (Negative) 04/20/25 19:40 Urine Glucose (UA) Negative (Normal) 04/20/25 19:40 Urine Ketones Negative (Negative) 04/20/25 19:40 Urine Blood Negative (Negative) 04/20/25 19:40 Urine Nitrate Negative (Negative) 04/20/25 19:40 Urine Bilirubin Negative (Negative) 04/20/25 19:40 Urine Urobilinogen 0.2 mg/dL (Negative) 04/20/25 19:40 Ur Leukocyte Esterase Negative (Negative) 04/20/25 19:40 Urine RBC 0-2 /hpf (0-2) 04/20/25 19:40 Urine WBC 0-5 /hpf (0-5) 04/20/25 19:40 Ur Squamous Epith Cells 0-5 /hpf (0-5) 04/20/25 19:40 Amorphous Sediment Not Reportable 04/20/25 19:40 Urine Bacteria None seen /hpf (NONE) 04/20/25 19:40 Hyaline Casts 0-4 /lpf H 04/20/25 19:40 Influenza A (PCR) Negative (Negative) 04/20/25 17:52 Influenza Type B (PCR) Negative (Negative) 04/20/25 17:52 RSV (PCR) Negative (Negative) 04/20/25 17:52 SARS-CoV-2 (PCR) Negative (Negative) 04/20/25 17:52 All radiology interpretation(s) finalized by discharge Discharge Plan Discharge Patient Disposition: Home Clinical Impression: Acute delirium Condition: Stable Prescriptions: No Action hydrocodone-acetaminophen 10-325 mg tablet 1 tab PO Q8H PRN (Reason: pain) 30 Days Qty: 90 0RF atorvastatin 40 mg Tablet 40 mg PO BEDTIME carvedilol 25 mg Tablet 25 mg PO BID Rx Instructions: must administer with a meal/food acetaminophen 325 mg Tablet 650 mg PO Q6H PRN (Reason: pain/fever) aspirin 325 mg Tablet 325 mg PO DAILY magnesium hydroxide [Milk of Magnesia] 400 mg/5 mL Suspension 1,305 ml PO DAILY PRN (Reason: Constipation) amlodipine 10 mg Tablet 10 mg PO DAILY pantoprazole 40 mg Tablet,Delayed Release (Dr/Ec) 40 mg PO QAM polyethylene glycol 3350 [Miralax] 17 gram/dose Powder 17 g PO DAILY PRN (Reason: Constipation) olmesartan 40 mg Tablet 40 mg PO DAILY bupropion HCl 150 mg Tablet Extended Release 24 Hr 150 mg PO QAM diazepam 5 mg tablet 5 mg PO Q8H PRN (Reason: anxiety) ciprofloxacin HCl 500 mg tablet 500 mg PO BID Qty: 20 0RF Discharge Orders: Discharge ED (Routine); Ordered 04/20/25 Ordered By: Edmond Khan Referrals: Giuseppe Ramey DO [Primary Care Provider, Family Practice] Patient Instructions: Acute Delirium (ED), Opioid Safety, Pain Management, Patient Portal & [facility] Instructions Activity Restrictions/Additional Instructions: No specific cause of the hallucinations or delirium were found in the evaluation. They appear improved currently. You appear at your baseline. Return for any problems, especially fever, worsening mental status, lethargy, etc. Print Language: Qatari Coding Level of Care Code ED Resolution Analyst for Trinidad Ramachandran
--- NOTE | 2025-04-20 20:34 | PC.NURSE ---
attempted to call [facility] but they are not open patient is ready for dc. she is not able to comprehend of sign the dc paperwork
--- NOTE | 2025-04-20 20:37 | PC.NURSE ---
spoke with marielle that patient is ready for dc and she is going to call around to see if someone can give her a ride back to [place] as they are closed and do not transport the patients back
[2025-04-20 20:46] VITALS: BP 126/68; PULSE 67; RESP 18; O2SAT 94
[2025-04-20] MEDS: LORazepam 2 mg/mL INJ 1 mL 1 MG IM (20:52)
== END 2025-04-20 20:53 | disposition home or self-care (01) ==
PROVIDERS: Emergency Medicine; Emergency Provider Emergency Medicine; PCP Family Medicine
DX: R41.0 Disorientation, unspecified (principal); Z79.82 Long term (current) use of aspirin; Z11.52 Encounter for screening for COVID-19; Z87.891 Personal history of nicotine dependence; Z86.73 Personal history of transient ischemic attack (TIA), and cerebral infarction without residual deficits
CPT/HCPCS: 36415; 70450; 71045; 80053; 81001; 83605; 85025; 87040; 87637; 96372; 99284; J2060